=== PATIENT | male | born 1960 | race Caucasian/White ===

== ENCOUNTER 2020-11-06 23:27 | Observation (INO) | payer MEDICARE, SELFPAY ==
[2020-11-06 23:28] VITALS: BP 108/69; PULSE 76; RESP 15; TEMP 36.7; O2SAT 98; BMI 33.7
--- NOTE | 2020-11-06 23:57 | EKG12_ITS ---
Test Reason : CP Blood Pressure : / mmHG Vent. Rate : 076 BPM Atrial Rate : 304 BPM P-R Int : 000 ms QRS Dur : 090 ms QT Int : 396 ms P-R-T Axes : 252 042 016 degrees QTc Int : 445 ms Atrial flutter Abnormal ECG Confirmed by EMERSON HOLCOMB, RONALD ([id number]), industrial editor ZIA NAJERA ([id number]) on 11/08/2020 10:08:54 AM Referred By: PL Confirmed By:RONALD NORMAN MD
--- NOTE | 2020-11-06 23:59 | CT_ITS ---
STUDY: CT BRAIN WITHOUT CONTRAST REASON FOR EXAM: Male, 60 years old. trauma RADIATION DOSAGE (If Supplied By Facility): CTDIvol = ( 44.99 ) mGy, DLP = ( 829.85 ) mGycm TECHNIQUE: Transaxial CT imaging of the brain was performed without administration of intravenous contrast material. Individualized dose optimization techniques were used for this CT. COMPARISON: No relevant priors. FINDINGS: Normal soft tissue structures. Normal calvarium. There is mild cerebral atrophy with widening of the extra-axial spaces and ventricular dilatation. Normal white matter tracts of the cerebral hemispheres. Normal basal ganglia and thalami. Normal brainstem. Normal cerebellum. There is no intracranial hemorrhage. There are no findings of an acute ischemic infarction. Normal visualized paranasal sinuses. CT/Brain/Head without Contrast IMPRESSION: Mild involutional changes otherwise normal unenhanced CT scan of the brain. Electronically Signed: Marcela Pardo MD at 0:47 EDT , Service support ,
--- NOTE | 2020-11-06 23:59 | EX.ED.DYSGE1 ---
HPI History of Present Illness Chief Complaint: Dizziness Informant: patient Narrative Narrative: Patient pains of lightheadedness and dizziness for about a week and a half. He states this mostly when he first gets up out of a chair. He has to get up and then kind of hold himself still for a while before he gets walking. He is not having vertigo. No focal weakness. Today was worse. He actually passed out this evening. He felt himself getting weak. He put his hands on his chair. He did fall and hit his head on a table. It sounds like he had had a loss of consciousness but it was really the cause of the fall and not a response to the impact. He is on Eliquis for atrial fibrillation. He does feel occasional palpitations of his heart and feels like it is fluttering. He is not having chest pain or dyspnea. Getting up makes his lightheadedness worse. Laying down makes it better. Sounds like patient was diagnosed with A. fib about 6 or 8 months ago at [facility]. He had cardioversion that got him to a normal sinus rhythm. He was then transferred to [facility] where they did a heart cath and he was told everything was fine. They did add metoprolol to his medication regimen about a month ago. His symptoms started about 10 days ago. The amlodipine was started about 6 or 8 months ago. Lisinopril he has been on for years. Past medical history includes COPD, A. fib, high cholesterol, chronic back pain Medication list reviewed from patient. This includes Eliquis. No known allergies Surgeries include back and knee Lives with family in a trailer. [facility] Medical History Anxiety Atherosclerotic heart disease [place] coronary artery w/angina pectoris Atrial flutter with rapid ventricular response Bipolar disorder Chronic diastolic heart failure Congestive heart failure GERD (gastroesophageal reflux disease) Gout Hypertension Hyponatremia Lumbar post-laminectomy syndrome NSTEMI (non-ST elevated myocardial infarction) Pneumonia Shoulder girdle symptom Sleep apnea Umbilical hernia Home Medications albuterol sulfate [Ventolin Hfa (SP)] 1 - 2 puff INHALATION Q4H PRN PRN 05/29/16 [History Last Taken Unknown] lisinopril 10 mg PO BID 05/29/16 [History Last Taken Unknown] amlodipine 5 mg PO DAILY 11/06/20 [History Last Taken Unknown] apixaban [Eliquis] 5 mg PO DAILY 11/06/20 [History Last Taken Unknown] ascorbic acid (vitamin C) [Vitamin C] 500 mg PO DAILY 11/06/20 [History Last Taken Unknown] asenapine maleate [Saphris] 10 mg SUBLINGUAL DAILY 11/06/20 [History Last Taken Unknown] aspirin [Aspir-81] 81 mg PO DAILY 11/06/20 [History Last Taken Unknown] atorvastatin 40 mg PO DAILY 11/06/20 [History Last Taken Unknown] azelastine 2 spray INTRANASAL BID 11/06/20 [History Last Taken Unknown] cholecalciferol (vitamin D3) 25 mcg PO DAILY 11/06/20 [History Last Taken Unknown] diazepam [Valium] 5 mg PO BID 11/06/20 [History Last Taken Unknown] fluticasone propionate 50 spray INTRANASAL DAILY 11/06/20 [History Last Taken Unknown] mykmleognfa-yzvopsgoh-wcatsjzl [Trelegy Ellipta] 1 inh INHALATION DAILY 11/06/20 [History Last Taken Unknown] furosemide 40 mg PO DAILY 11/06/20 [History Last Taken Unknown] ipratropium-albuterol [DuoNeb] 3 ml INHALATION Q6H PRN PRN 11/06/20 [History Last Taken Unknown] loratadine 10 mg PO DAILY PRN 11/06/20 [History Last Taken Unknown] metoprolol succinate 25 mg PO DAILY 11/06/20 [History Last Taken Unknown] oxycodone 10 mg PO Q4H PRN PRN 11/06/20 [History Last Taken Unknown] pantoprazole 40 mg PO BID 11/06/20 [History Last Taken Unknown] polyethylene glycol 3350 17 g PO DAILY PRN PRN 11/06/20 [History Last Taken Unknown] tamsulosin 0.4 mg PO DAILY 11/06/20 [History Last Taken Unknown] tizanidine 2 mg PO DAILY PRN 11/06/20 [History Last Taken Unknown] vitamin B complex [B Complex] 1 cap PO DAILY 11/06/20 [History Last Taken Unknown] Allergy/AdvReac Type Severity Reaction Status Date / Time No Known Allergies Allergy Verified 11/06/20 23:30 Social History Smoking Status: Current every day smoker tobacco type: cigarettes ROS ROS ED Constitutional Constitutional ED: Denies chills, fever(s) or weight loss Eyes Eyes: Denies blurry vision or change in vision ENT ENT ED: Denies rhinorrhea Cardiovascular Cardiovascular: Reports palpitations; Denies chest pain Respiratory/Chest Respiratory/Chest: Denies cough or dyspnea Gastrointestinal Gastrointestinal: Denies abdominal pain, nausea or vomiting Genitourinary Genitourinary ED: Denies dysuria Musculoskeletal Musculoskeletal: Denies arthralgias, back pain, myalgias or neck pain Integumentary Denies rash Neurologic Neurologic: Reports headache(s); Denies paresthesias or weakness Psychiatric Psychiatric: Denies depression Endocrine Endocrinology: Denies polydipsia or polyuria Allergic/Immunologic Allergic/Immunologic ED: Denies urticaria EXAM Physical Exam Const Vital Signs: 11/06/20 23:28 11/06/20 23:52 11/07/20 01:17 Temperature 98.0 F Temperature Source Oral Pulse Rate 76 73 Respiratory Rate 15 16 Respiratory Effort Normal Respiratory Pattern Normal Blood Pressure 108/69 104/68 Blood Pressure Mean 82 80 Pulse Ox 98 95 Oxygen Delivery Method Room Air Room Air Positive well nourished and well developed General Appearance ED: well developed and NAD; Negative for pallor HEENT HEENT Narrative: Patient hit his head behind his right ear but I do not see any contusion or abrasion or zena at this time. Eyes PERRL and EOMs intact bilaterally Neck no lymphadenopathy, No supple and no JVD Resp normal respiratory effort and clear to auscultation bilaterally Effort and Inspection: Negative for pain with movement Cardio regular rate; Negative for regular rhythm Rate: other Other Details: Patient is is in atrial flutter generally with about 3-1 block but it does vary. GI normal to inspection, nondistended, normoactive bowel sounds and non-tender Palpation: soft Back/Spine no CVA tenderness Extremity normal to inspection General Extremety ED: Negative for edema or tenderness General Extremity: Negative for edema Neuro oriented x3 Sensorium / Orientation: alert Psych mental status grossly normal Skin no rashes or lesions noted and no wounds General Skin Exam: Negative for pallor MDM MDM MDM Narrative Medical decision making narrative: Patient's EKG shows atrial flutter. CBC shows no marked abnormalities. Letter lites show mild elevation in the creatinine. Calcium troponin magnesium are okay. Lactate was okay. He was given fluids. His blood pressure is hanging about 9800 systolic. Occasionally slightly higher. However, with his syncope, recurrent onset of dysrhythmia, low blood pressure I think going home would be unsafe for him. He will be brought in the hospital for further management. Lab Data Labs: Laboratory Results - last 24 hr 11/06/20 11/06/20 11/06/20 23:40 23:40 23:40 WBC 7.7 RBC 4.55 L Hgb 13.2 Hct 40.7 MCV 89.5 MCH 29.0 MCHC 32.4 RDW Std Deviation 57.0 H RDW Coeff of Jennifer 17.4 H Plt Count 261 MPV 9.8 Immature Gran % (Auto) 0.900 Neut % (Auto) 52.9 Lymph % (Auto) 30.7 [place] % (Auto) 11.3 H Eos % (Auto) 3.2 Baso % (Auto) 1.0 Absolute Neuts (auto) 4.1 Absolute Lymphs (auto) 2.37 Nucleated RBC % 0 Sodium 135 L Potassium 3.8 Chloride 100 Carbon Dioxide 30.0 Anion Gap 5 BUN 22 H Creatinine 1.53 H Estim Creat Clear Calc 54.95 Est GFR (MDRD) Af Amer 60 Est GFR (MDRD) Non-Af 49 L BUN/Creatinine Ratio 14.4 Glucose 88 Lactic Acid Calcium 9.8 Magnesium 2.4 Troponin I High Sens 7 11/07/20 00:07 WBC RBC Hgb Hct MCV MCH MCHC RDW Std Deviation RDW Coeff of Jennifer Plt Count MPV Immature Gran % (Auto) Neut % (Auto) Lymph % (Auto) [place] % (Auto) Eos % (Auto) Baso % (Auto) Absolute Neuts (auto) Absolute Lymphs (auto) Nucleated RBC % Sodium Potassium Chloride Carbon Dioxide Anion Gap BUN Creatinine Estim Creat Clear Calc Est GFR (MDRD) Af Amer Est GFR (MDRD) Non-Af BUN/Creatinine Ratio Glucose Lactic Acid 1.9 Calcium Magnesium Troponin I High Sens Radiography Diagnostic Testing: Radiology Impression Brain CT 11/06/20 23:59 IMPRESSION: Mild involutional changes otherwise normal unenhanced CT scan of the brain. Electronically Signed: Marcela Pardo MD at 0:47 EDT , Service support , EKG Initial EKG: Comments: EKG done for palpitations read by me shows atrial flutter with overall rate of 76. No ventricular ectopy. No notable ST elevation or depression. QRS duration and QTc are normal. Discharge Plan Dx/Rx/DC Orders Clinical Impression: Atrial flutter, Hypotension, Syncope Disposition Disposition: Acute Care Hospital [facility] Discharge Date/Time: 11/07/20 01:42
[2020-11-07] VITALS (18 sets, daily range): BP systolic 104–121; BP diastolic 65–85; PULSE 62–85; RESP 9–20; TEMP 36.5–36.7; O2SAT 95–100; BMI 33.3
[2020-11-07] MEDS: 0.9% Normal Saline 1,000 ML 1000 ML IV (00:07)
[2020-11-07 00:18] LABS: Absolute Lymphocyte Count 2.37 X10^3/uL (0.83-4.51); Absolute Neutrophil Count 4.1 X10^3/uL (2.0-7.7); Basophil# 0.08 X10^3/uL; Eosinophil# 0.25 X10^3/uL; Eosinophils% 3.2 % (0-5); Hematocrit 40.7 % (40-54); Hemoglobin 13.2 g/dL (13.0-16.5); Lymphocyte # 2.37 X10^3/ul (0.83-4.51); Lymphocyte % 30.7 % (19-41); Mean Corp Hgb Conc 32.4 g/dL (32-36); Mean Corpuscular Volume 89.5 fL (80-94); Mean Platelet Vol. 9.8 fl (6.2-12.0); Monocyte# 0.87 X10^3/uL; Monocyte% 11.3 % (0-10); NRBC Flagged by Analyzer 0 % (0-5); Neutrophil # 4.09 X10^3/uL (2.7-7.7); Neutrophil % 52.9 % (47-70); Platelet Count 261 K/mm3 (150-450); RBC Distribution Width CV 17.4 % (11.6-14.6); Red Blood Count 4.55 M/mm3 (4.6-6.2); White Blood Count 7.7 K/mm3 (4.4-11.0)
[2020-11-07 00:20] LABS: Anion Gap 5 (5-15); BUN 22 mg/dL (7-18); BUN/Creat Ratio 14.4 RATIO (10-20); Calcium,Total 9.8 mg/dL (8.5-10.1); Chloride 100 mmol/L (98-107); Creatinine, Serum 1.53 mg/dL (0.70-1.30); EST Glomerular Filtration Rate 49 mL/min (>60); Est Glom Filt Rate - Afr Amer 60 mL/min (>60); Estimated Creatinine Clearance 54.95 ml/min; Glucose 88 mg/dL (74-106); Potassium 3.8 mmol/L (3.5-5.1); Sodium Level 135 mmol/L (136-145); Troponin-I HS 7 pg/mL (3.0-78.0)
[2020-11-07 00:36] LABS: Lactic Acid 1.9 mmol/L (0.4-1.9)
--- NOTE | 2020-11-07 01:35 | PCM.HP.STD ---
Documented by User: LOREE CombsC 11/07/20 01:44 HPI - General General Date of Admission: 11/07/20 Date of Service: 11/07/20 Chief Complaint: Syncope HPI Narrative ABHILASH VIERA, is a 60 M who presents with complaints of syncopal episode today after being lightheaded and dizzy for the past week and a half when transitioning from sitting to standing. Patient states that he has had atrial fibrillation in the past and underwent cardioversion. Patient currently anticoagulated with Eliquis. Patient reports occasional fluttering however denies chest pain or shortness of breath. [facility] Medical History Anxiety Atherosclerotic heart disease [place] coronary artery w/angina pectoris Atrial flutter with rapid ventricular response Bipolar disorder Chronic diastolic heart failure Congestive heart failure GERD (gastroesophageal reflux disease) Gout Hypertension Hyponatremia Lumbar post-laminectomy syndrome NSTEMI (non-ST elevated myocardial infarction) Pneumonia Shoulder girdle symptom Sleep apnea Umbilical hernia Home Medications albuterol sulfate [Ventolin Hfa (SP)] 1 - 2 puff INHALATION Q4H PRN PRN 05/29/16 [History Last Taken Unknown] lisinopril 10 mg PO BID 05/29/16 [History Last Taken Unknown] amlodipine 5 mg PO DAILY 11/06/20 [History Last Taken Unknown] apixaban [Eliquis] 5 mg PO DAILY 11/06/20 [History Last Taken Unknown] ascorbic acid (vitamin C) [Vitamin C] 500 mg PO DAILY 11/06/20 [History Last Taken Unknown] asenapine maleate [Saphris] 10 mg SUBLINGUAL DAILY 11/06/20 [History Last Taken Unknown] aspirin [Aspir-81] 81 mg PO DAILY 11/06/20 [History Last Taken Unknown] atorvastatin 40 mg PO DAILY 11/06/20 [History Last Taken Unknown] azelastine 2 spray INTRANASAL BID 11/06/20 [History Last Taken Unknown] cholecalciferol (vitamin D3) 25 mcg PO DAILY 11/06/20 [History Last Taken Unknown] diazepam [Valium] 5 mg PO BID 11/06/20 [History Last Taken Unknown] fluticasone propionate 50 spray INTRANASAL DAILY 11/06/20 [History Last Taken Unknown] tzupqmzvsgj-stdkjhaya-ofjotegp [Trelegy Ellipta] 1 inh INHALATION DAILY 11/06/20 [History Last Taken Unknown] furosemide 40 mg PO DAILY 11/06/20 [History Last Taken Unknown] ipratropium-albuterol [DuoNeb] 3 ml INHALATION Q6H PRN PRN 11/06/20 [History Last Taken Unknown] loratadine 10 mg PO DAILY PRN 11/06/20 [History Last Taken Unknown] metoprolol succinate 25 mg PO DAILY 11/06/20 [History Last Taken Unknown] oxycodone 10 mg PO Q4H PRN PRN 11/06/20 [History Last Taken Unknown] pantoprazole 40 mg PO BID 11/06/20 [History Last Taken Unknown] polyethylene glycol 3350 17 g PO DAILY PRN PRN 11/06/20 [History Last Taken Unknown] tamsulosin 0.4 mg PO DAILY 11/06/20 [History Last Taken Unknown] tizanidine 2 mg PO DAILY PRN 11/06/20 [History Last Taken Unknown] vitamin B complex [B Complex] 1 cap PO DAILY 11/06/20 [History Last Taken Unknown] Allergy/AdvReac Type Severity Reaction Status Date / Time No Known Allergies Allergy Verified 11/06/20 23:30 Social History Smoking Status: Current every day smoker tobacco type: cigarettes ROS Constitutional Constitutional: Reports weakness; Denies anorexia, chills, fatigue, fever(s) or malaise Cardiovascular Cardiovascular: Reports palpitations and syncope; Denies chest pain or edema Respiratory/Chest Respiratory/Chest: Denies cough, shortness of breath at rest or shortness of breath with exertion Gastrointestinal Gastrointestinal: Denies abdominal pain, constipation, diarrhea, nausea or vomiting Genitourinary Genitourinary: Denies dysuria Musculoskeletal Musculoskeletal: Denies back pain, extremity pain, joint pain, joint stiffness or joint swelling Integumentary Integumentary: Denies dry skin Neurologic Neurologic: Denies abnormal gait, abnormal speech, confusion, dizziness or focal weakness Psychiatric Psychiatric: Denies anxiety or depression Endocrine Endocrinology: Denies change in body appearance Hematologic/Lymphatic Hematologic/Lymphatic: Denies easy bleeding or easy bruising Vital Signs Vital Signs Vital Signs: 11/06/20 23:28 11/06/20 23:52 11/07/20 01:17 Temperature 98.0 F Temperature Source Oral Pulse Rate 76 73 Respiratory Rate 15 16 Respiratory Effort Normal Respiratory Pattern Normal Blood Pressure 108/69 104/68 Blood Pressure Mean 82 80 Pulse Ox 98 95 Oxygen Delivery Method Room Air Room Air Weight Weight: 249 lb 1.957 oz Body Mass Index (BMI) 33.7 Physical Exam Const alert, oriented x3 and no apparent distress General Appearance: cooperative HEENT normocephalic and head/scalp atraumatic Eyes conjunctivae normal and no scleral icterus Neck supple and no JVD General: trachea midline Resp normal respiratory effort, normal air movement and clear to auscultation bilaterally Cardio regular rate, regular rhythm, S1 normal heart sound, S2 normal heart sound and peripheral pulses 2+ throughout GI normal to inspection, nondistended, normoactive bowel sounds, soft to palpation and non-tender Extremity normal capillary refill and no clubbing, cyanosis or edema General Extremity: no tenderness to palpation of joints or extremities Skin General Skin Exam: no breakdown and turgor normal Lesions: no lesions Rashes: no rashes Neuro no focal motor deficits and no sensory deficits noted Speech: speech normal Motor Exam: Negative for general weakness Psych thought process normal, cooperative and affect normal Appearance: appropriate Results Lab / Micro Data Result Diagrams: 11/06/20 23:40 11/06/20 23:40 Labs: Laboratory Results - last 24 hr 11/06/20 23:40: WBC 7.7, RBC 4.55 L, Hgb 13.2, Hct 40.7, MCV 89.5, MCH 29.0, MCHC 32.4, RDW Std Deviation 57.0 H, RDW Coeff of Jennifer 17.4 H, Plt Count 261, MPV 9.8, Immature Gran % (Auto) 0.900, Neut % (Auto) 52.9, Lymph % (Auto) 30.7, [place] % (Auto) 11.3 H, Eos % (Auto) 3.2, Baso % (Auto) 1.0, Absolute Neuts (auto) 4.1, Absolute Lymphs (auto) 2.37, Nucleated RBC % 0 11/06/20 23:40: Sodium 135 L, Potassium 3.8, Chloride 100, Carbon Dioxide 30.0, Anion Gap 5, BUN 22 H, Creatinine 1.53 H, Estim Creat Clear Calc 54.95, Est GFR (MDRD) Af Amer 60, Est GFR (MDRD) Non-Af 49 L, BUN/Creatinine Ratio 14.4, Glucose 88, Calcium 9.8, Troponin I High Sens 7 11/07/20 00:07: Lactic Acid 1.[address] 11/06/20 23:59 IMPRESSION: Mild involutional changes otherwise normal unenhanced CT scan of the brain. Electronically Signed: Marcela Pardo MD at 0:47 EDT , Service support , Assessment & Plan Assessment/Plan (1) Atrial flutter: QUALIFIERS: Atrial flutter type: typical Qualified Code(s): I48.3 - Typical atrial flutter PLAN: 1. Atrial flutter -Admit to PCU for cardiac monitoring -Continue home medications including Eliquis, metoprolol. -Trend cardiac enzymes -Cardiac diet -Encourage incentive spirometry -PT and OT to eval and treat -Oxygen per protocol -CBC, BMP, TSH ordered for a.m. Mag level stat -Echocardiogram for a.m. 2. Hypertension -We will hold all antihypertensives at this time -Vital signs per protocol -Obtain orthostatic vital signs x1 3. Bipolar disorder -Continue home medication regimen 4. COPD -Stable, currently on room air -Continue home medication regimen 5. BPH -Continue tamsulosin DVT prophylaxis-not indicated, patient chronically anticoagulated This patient was seen by ZAHIDA Combs under the supervision of Dr. Bentley. Documented by User: Dr. Kimberly Bentley MD 11/07/20 02:08 HPI - General General Date of Admission: 11/07/20 [facility] Medical History Anxiety Atherosclerotic heart disease [place] coronary artery w/angina pectoris Atrial flutter with rapid ventricular response Bipolar disorder Chronic diastolic heart failure Congestive heart failure GERD (gastroesophageal reflux disease) Gout Hypertension Hyponatremia Lumbar post-laminectomy syndrome NSTEMI (non-ST elevated myocardial infarction) Pneumonia Shoulder girdle symptom Sleep apnea Umbilical hernia Home Medications albuterol sulfate [Ventolin Hfa (SP)] 1 - 2 puff INHALATION Q4H PRN PRN 05/29/16 [History Last Taken Unknown] lisinopril 10 mg PO BID 05/29/16 [History Last Taken Unknown] amlodipine 5 mg PO DAILY 11/06/20 [History Last Taken Unknown] apixaban [Eliquis] 5 mg PO DAILY 11/06/20 [History Last Taken Unknown] ascorbic acid (vitamin C) [Vitamin C] 500 mg PO DAILY 11/06/20 [History Last Taken Unknown] asenapine maleate [Saphris] 10 mg SUBLINGUAL DAILY 11/06/20 [History Last Taken Unknown] aspirin [Aspir-81] 81 mg PO DAILY 11/06/20 [History Last Taken Unknown] atorvastatin 40 mg PO DAILY 11/06/20 [History Last Taken Unknown] azelastine 2 spray INTRANASAL BID 11/06/20 [History Last Taken Unknown] cholecalciferol (vitamin D3) 25 mcg PO DAILY 11/06/20 [History Last Taken Unknown] diazepam [Valium] 5 mg PO BID 11/06/20 [History Last Taken Unknown] fluticasone propionate 50 spray INTRANASAL DAILY 11/06/20 [History Last Taken Unknown] aswbfvzzbbm-hwjumdyml-ppiwzbpl [Trelegy Ellipta] 1 inh INHALATION DAILY 11/06/20 [History Last Taken Unknown] furosemide 40 mg PO DAILY 11/06/20 [History Last Taken Unknown] ipratropium-albuterol [DuoNeb] 3 ml INHALATION Q6H PRN PRN 11/06/20 [History Last Taken Unknown] loratadine 10 mg PO DAILY PRN 11/06/20 [History Last Taken Unknown] metoprolol succinate 25 mg PO DAILY 11/06/20 [History Last Taken Unknown] oxycodone 10 mg PO Q4H PRN PRN 11/06/20 [History Last Taken Unknown] pantoprazole 40 mg PO BID 11/06/20 [History Last Taken Unknown] polyethylene glycol 3350 17 g PO DAILY PRN PRN 11/06/20 [History Last Taken Unknown] tamsulosin 0.4 mg PO DAILY 11/06/20 [History Last Taken Unknown] tizanidine 2 mg PO DAILY PRN 11/06/20 [History Last Taken Unknown] vitamin B complex [B Complex] 1 cap PO DAILY 11/06/20 [History Last Taken Unknown] Allergy/AdvReac Type Severity Reaction Status Date / Time No Known Allergies Allergy Verified 11/06/20 23:30 Social History Smoking Status: Current every day smoker tobacco type: cigarettes Results Lab / Micro Data Result Diagrams: 11/06/20 23:40 11/06/20 23:40
[2020-11-07 01:46] LABS: Magnesium 2.4 mg/dL (1.6-2.6)
[2020-11-07] MEDS: 0.9% Normal Saline 1,000 ML 100 ML IV ×3 (02:11→23:48)
[2020-11-07] MEDS: 0.9% Saline Lock 10 ML Syringe IV ×2 (02:11→15:27)
[2020-11-07] MEDS: oxyCODONE 5 MG Tablet 10 MG PO ×5 (02:23→20:38)
--- NOTE | 2020-11-07 02:32 | PCS.PANDOC ---
PANDEMIC DOCUMENTATION INITIATED: Date: 10/29/2020 Time: 190
[2020-11-07 03:07] LABS: Troponin-I HS 8 pg/mL (3.0-78.0)
[2020-11-07] MEDS: Acetaminophen 325 MG Tablet 650 MG PO ×2 (05:18→16:33)
[2020-11-07 05:25] LABS: Absolute Lymphocyte Count 2.05 X10^3/uL (0.83-4.51); Basophil# 0.07 X10^3/uL; Basophil% 1.2 % (0-1); Eosinophil# 0.22 X10^3/uL; Eosinophils% 3.6 % (0-5); Hematocrit 39.6 % (40-54); Hemoglobin 12.4 g/dL (13.0-16.5); Lymphocyte # 2.05 X10^3/ul (0.83-4.51); Lymphocyte % 33.9 % (19-41); Mean Corp Hgb Conc 31.3 g/dL (32-36); Mean Corpuscular Hgb 28.4 pg (27.0-32.0); Mean Corpuscular Volume 90.8 fL (80-94); Mean Platelet Vol. 9.6 fl (6.2-12.0); Monocyte# 0.66 X10^3/uL; Monocyte% 10.9 % (0-10); NRBC Flagged by Analyzer 0 % (0-5); Neutrophil # 3.03 X10^3/uL (2.7-7.7); Neutrophil % 50.2 % (47-70); Platelet Count 219 K/mm3 (150-450); RBC Distribution Width CV 17.2 % (11.6-14.6); RBC Distribution Width SD 57.2 fl (35.1-43.9); Red Blood Count 4.36 M/mm3 (4.6-6.2)
[2020-11-07 05:53] LABS: Troponin-I HS 7 pg/mL (3.0-78.0)
--- NOTE | 2020-11-07 05:55 | ECHOD_ITS ---
Reason For Study: AFIB/FLUTTER Procedure This was a 2D Doppler, Color Flow transthoracic echocardiogram. Exam performed portable in patient room. Left Ventricle Normal LV size. Left ventricular systolic function is normal. The estimated ejection fraction is 55 %. Diastolic function is indeterminate. No regional wall motion abnormalities noted. Right Ventricle Normal RV size. Normal systolic function. Atria Normal left atrium. Normal right atrium. Mitral Valve Normal mitral valve. Tricuspid Valve Normal tricuspid valve. Mild tricuspid valve insufficiency. Aortic Valve Trisinus/trileaflet aortic valve. Pulmonic Valve Normal pulmonic valve. Great Vessels Normal aortic root. The pulmonary artery is normal size. Normal inferior vena cava. Pericardium/Pleural No pericardial effusion. MMode/2D Measurements & Calculations LVIDd: 5.3 cm IVSd: 1.0 cm Ao root diam: 3.5 cm LVIDs: 3.7 cm LVPWd: 1.0 cm RVDd: 3.6 cm FS: 30.6 % LAV(MOD-bp): 53.6 ml LA A4 area: 19.8 cm2 LA dimension(2D): 3.0 cm LAV(MOD-bp) Indexed: 22.9 ml/m2 LAV(MOD-sp2): 45.0 ml LAV(MOD-sp4): 52.9 ml RA A4 area: 16.1 cm2 Time Measurements MV dec time: 0.19 sec Doppler Measurements & Calculations MV E max juliocesar: 78.2 cm/sec Ao V2 max: 102.8 cm/sec LV V1 max: 88.3 cm/sec MV A max juliocesar: 59.7 cm/sec Ao max P.2 mmHg LV V1 max P.1 mmHg MV E/A: 1.3 TR max juliocesar: 228.8 cm/sec TR max P.8 mmHg ECHO/Echo Complete Interpretation Summary Normal LV size. Left ventricular systolic function is normal. The estimated ejection fraction is 55 %. Diastolic function is indeterminate. Ordering Physician: Leila Benavides Referring Physician: Melyssa Nevarez Performed By: Do Buckley, DANIEL, RVT
[2020-11-07 06:03] LABS: Anion Gap 6 (5-15); BUN 21 mg/dL (7-18); BUN/Creat Ratio 16.8 RATIO (10-20); Calcium,Total 9.3 mg/dL (8.5-10.1); Chloride 100 mmol/L (98-107); Creatinine, Serum 1.25 mg/dL (0.70-1.30); EST Glomerular Filtration Rate 62 mL/min (>60); Est Glom Filt Rate - Afr Amer 75 mL/min (>60); Estimated Creatinine Clearance 67.25 ml/min; Glucose 101 mg/dL (74-106); Potassium 3.8 mmol/L (3.5-5.1); Sodium Level 135 mmol/L (136-145); Thyroid Stim Hormone (TSH) 1.26 uIU/mL (0.358-3.74)
[2020-11-07] MEDS: Budesonide Respules 0.5 MG/2 ML AMPUL.NEB. INHALATION ×2 (06:49→18:55)
[2020-11-07 08:31] LABS: Troponin-I HS 8 pg/mL (3.0-78.0)
[2020-11-07] MEDS: Vitamin B Comp W-C Capsule 1 CAP PO (08:35)
[2020-11-07] MEDS: APIXABAN 5 MG TABLET PO ×2 (08:35→20:41)
[2020-11-07] MEDS: Aspirin E.C. 81 MG Tablet PO (08:35)
[2020-11-07] MEDS: Cholecalciferol (VIT D3) 25 MCG TABLET (1,000 UNITS) PO (08:35)
[2020-11-07] MEDS: Ascorbic Acid 500 MG Tablet PO (08:35)
[2020-11-07] MEDS: Pantoprazole Sodium 40 MG Tablet PO ×2 (08:35→20:41)
[2020-11-07] MEDS: Metoprolol(XL)Succ 25 MG Tablet PO (08:36)
[2020-11-07] MEDS: Tamsulosin HCl 0.4 MG Capsule PO (08:36)
[2020-11-07] MEDS: Fluticasone 0.05% 1 SPRAY NASAL.SRY 50 SPRAY NASAL (08:36)
[2020-11-07] MEDS: diazePAM 5 MG Tablet PO ×2 (08:40→20:43)
[2020-11-07] MEDS: Cephalexin 500 MG Capsule PO ×2 (10:29→20:41)
--- NOTE | 2020-11-07 11:44 | MRI_ITS ---
STUDY: MRI BRAIN WITHOUT CONTRAST REASON FOR EXAM: Male, 60 years old. ataxia, syncope episode TECHNIQUE: Standardized multiplanar fat and water weighted pulse sequences were obtained. COMPARISON: CT earlier today FINDINGS: Normal size of the ventricles and extra-axial spaces for the patient''s age. Normal white matter tracts of the supratentorial brain. There is no evidence for recent intracranial ischemia or other cause of cytotoxic edema on diffusion weighted imaging (DWI). Normal T2* images of the brain without demonstrated susceptibility artifact. There is no demonstrated hemosiderin stain. Normal bilateral basal ganglia. Normal thalami. There is no extra-axial fluid accumulation. Normal flow voids within the major intracranial circulation suggesting patency by spin echo criteria. Normal sella turcica, pituitary gland, infundibular stalk, optic chiasm and hypothalamus. Normal tectal plate and pineal gland. Normal midbrain, edgar and medulla. Normal cerebellum. Normal basal cisterns. Normal bilateral temporal bones. Normal bilateral internal auditory canals. No demonstrated orbital abnormality, within the constraints of a routine brain study. Normal visualized paranasal sinuses. Normal calvarium and skull base. Normal visualized soft tissue structures. Normal visualized upper cervical spine. MRI/Brain without Contrast IMPRESSION: Normal unenhanced MRI of the brain. Electronically Signed: Hi Beck MD at 15:30 EDT Tel , Service support ,
[2020-11-07] MEDS: Polyethylene Glycol 3350 17 GM PACKET PO (11:55)
[2020-11-07] MEDS: diazePAM 2 MG Tablet PO (14:24)
--- NOTE | 2020-11-07 16:23 | PCM.HOSP.N ---
Hospitalist Note Patient is a 60-year-old male who was admitted to the hospital on 11/07/2020 for atrial flutter. Cardiology consult was ordered and is currently pending. TSH and mag level ordered on admission are within normal limits. High-sensitivity troponins not elevated. Echocardiogram demonstrated normal LV size, normal LV systolic function and estimated EF of 55% with an indeterminate diastolic dysfunction. Patient seen by Bobby Mccartney PA-C, under the supervision of Dr. Ramírez.
--- NOTE | 2020-11-07 19:31 | CON.PCM.CA_ITS ---
Assessment & Plan Assessment/Plan (1) Atrial flutter: QUALIFIERS: Atrial flutter type: typical Qualified Code(s): I48.3 - Typical atrial flutter PLAN: The patient appears to be in atrial flutter. Based upon his recollection approximately 1 month ago he was in normal rhythm. Thus it appears that he has reverted to atrial flutter. It is unclear at this time whether the recurrence of atrial flutter is the sole etiology for his symptoms and events. He has remained on rate control therapy and anticoagulant therapy. It may not be unreasonable to consider a repeat synchronized biphasic DC cardioversion and attempt to regain sinus rhythm as that may benefit the patient's underlying symptoms and clinical course. (2) Syncope: QUALIFIERS: Syncope type: unspecified Qualified Code(s): R55 - Syncope and collapse PLAN: The patient had a syncopal event. There is concerned that this may have been orthostatic mediated. There is a question as to whether or not his underlying atrial dysrhythmia was a contributing factor. At the present time the patient continues to receive IV fluids. His cardiac rate and rhythm are being followed. Again it may not be unreasonable to consider a repeat synchronized biphasic DC cardioversion and attempt to regain sinus rhythm to see whether this would benef it the patient's symptoms and clinical course. (3) Hypotension: QUALIFIERS: Hypotension type: unspecified hypotension type Qualified Code(s): I95.9 - Hypotension, unspecified PLAN: The patient notes that his antihypertensive medications were recently adjusted. He does believe his blood pressures have been lower than usual. This may be a contributing factor to his recent symptoms and events. Thus his medications will need to be readjusted as deemed accordingly. Addt'l Comments Overall, at the present time, the patient will continue to be monitored. An attempt is being made to retrieve his [facility] medical records for continuity of care. His medicines will be adjusted as needed. He will be considered for a repeat synchronized biphasic DC cardioversion and attempt to regain sinus rhythm to help with his symptoms and clinical course. Eventually he will need to follow-up with his [facility] psych tech for continued outpatient evaluation and care. The patient's case has been discussed and reviewed with the patient. He was agreeable to this approach. HPI Consult Data Date of Consult: 11/07/20 HPI Narrative HPI Narrative: ABHILASH VIERA, is a 60 year old white male who presents for cardiovascular, notation for concerns of recurrent atrial flutter, dizziness/lightheadedness, near syncope/syncope. The patient follows with [facility] cardiology out of [facility], and [place], [place] and has also been evaluated at [facility]. The patient states that he was diagnosed earlier this year with underlying atrial fibrillation/flutter. He states that he underwent a noninvasive and invasive cardiovascular evaluation. To the best of his knowledge he had no abnormal findings with respect to underlying CAD or LV systolic dysfunction. He underwent a DC cardioversion to regain sinus rhythm. He states the best of his knowledge, up to approximately 1 month ago when he was being evaluated by his primary psych tech with an ECG, that he was remaining in sinus rhythm. He notes his psych tech was adjusting his medications. Since that time he feels that he has been more lightheaded and dizzy. He notes yesterday that he got up from a sitting to standing position became lightheaded and dizzy and subsequently lost consciousness. He states he remembers falling forward and hearing the noise of hitting the table . He does not recall any concerning chest discomfort or difficulty breathing. He has not had any orthopnea or PND or ongoing peripheral pitting edema. He was brought to [facility] for further evaluation. His cardiac enzymes have been negative. His ECG demonstrated atrial flutter with a controlled ventricular response. His chest x-ray is as noted below. There were concerns that he may have had orthostatic changes and thus he has been receiving IV fluids. His other medications such as DARION inhibitors and calcium channel antagonist such as amlodipine or placed on hold. He has continued his beta- bo therapy and his anticoagulant therapy. He states he has not interrupted his anticoagulant therapy since he was placed on it earlier this year. Since receiving IV fluids he states he is feeling somewhat better but he still does not feel back to his normal self and/or normal strength. 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 Atrial flutter with rapid ventricular response Bipolar disorder Chronic diastolic heart failure Congestive heart failure GERD (gastroesophageal reflux disease) Gout Hypertension Hyponatremia Lumbar post-laminectomy syndrome NSTEMI (non-ST elevated myocardial infarction) Pneumonia Shoulder girdle symptom Sleep apnea Umbilical hernia Home Medications albuterol sulfate [Ventolin Hfa (SP)] 1 - 2 puff INHALATION Q4H PRN PRN 05/29/16 [History Last Taken Unknown] lisinopril 10 mg PO BID 05/29/16 [History Last Taken Unknown] amlodipine 5 mg PO DAILY 11/06/20 [History Last Taken Unknown] apixaban [Eliquis] 5 mg PO BID 11/06/20 [History Last Taken Unknown] ascorbic acid (vitamin C) [Vitamin C] 500 mg PO DAILY 11/06/20 [History Last Taken Unknown] asenapine maleate [Saphris] 10 mg SUBLINGUAL DAILY 11/06/20 [History Last Taken Unknown] aspirin [Aspir-81] 81 mg PO DAILY 11/06/20 [History Last Taken Unknown] azelastine 2 spray INTRANASAL BID 11/06/20 [History Last Taken Unknown] cholecalciferol (vitamin D3) 25 mcg PO DAILY 11/06/20 [History Last Taken Un known] diazepam [Valium] 5 mg PO BID 11/06/20 [History Last Taken Unknown] fluticasone propionate 50 spray INTRANASAL DAILY 11/06/20 [History Last Taken Unknown] nplwcrdpwsx-ylptwrfev-beqndynv [Trelegy Ellipta] 1 inh INHALATION DAILY 11/06/20 [History Last Taken Unknown] furosemide 40 mg PO QODAY 11/06/20 [History Last Taken Unknown] ipratropium-albuterol [DuoNeb] 3 ml INHALATION Q6H PRN PRN 11/06/20 [History Last Taken Unknown] loratadine 10 mg PO DAILY PRN 11/06/20 [History Last Taken Unknown] metoprolol succinate 25 mg PO DAILY 11/06/20 [History Last Taken Unknown] oxycodone 10 mg PO Q4H PRN PRN 11/06/20 [History Last Taken Unknown] pantoprazole 40 mg PO BID 11/06/20 [History Last Taken Unknown] polyethylene glycol 3350 17 g PO DAILY 11/06/20 [History Last Taken Unknown] tamsulosin 0.4 mg PO DAILY 11/06/20 [History Last Taken Unknown] tizanidine 2 mg PO DAILY PRN 11/06/20 [History Last Taken Unknown] vitamin B complex [B Complex] 1 cap PO DAILY 11/06/20 [History Last Taken Unknown] cephalexin 500 mg PO TID 11/07/20 [History Last Taken Unknown] yyemmldn-mpo-HZ-lycopen-lutein [Centrum Silver Men] 1 tab PO DAILY 11/07/20 [History Last Taken Unknown] omega-3 fatty acids-vitamin E [Fish Oil] 1 cap PO DAILY 11/07/20 [History Last Taken Unknown] Allergy/AdvReac Type Severity Reaction Status Date / Time No Known Allergies Allergy Verified 11/06/20 23:30 Social History Smoking Status: Current every day smoker tobacco type: cigarettes ROS Constitutional Constitutional: Reports weakness Eyes Eyes: Reports as per HPI ENT HEENT: Reports as per HPI Cardiovascular Cardiovascular: Reports dizziness, lightheadedness and syncope Respiratory/Chest Respiratory/Chest: Reports as per HPI Gastrointestinal Gastrointestinal: Reports as per HPI Genitourinary Genitourinary: Reports as per HPI Musculoskeletal Musculoskeletal: Reports as per HPI Neurologic Neurologic: Reports dizziness and syncope Physical Exam Const alert, oriented x3, no apparent distress and healthy appearing Orientation / Consciousness: awake HEENT normocephalic, head/scalp atraumatic and hearing grossly normal bilaterally Eyes PERRL, EOMs intact bilaterally and conjunctivae normal Neck full ROM, supple and no JVD Resp clear to auscultation bilaterally Cardio Rhythm: abnormal rhythm irregularly irregular Heart Sounds: S1 normal and S2 normal GI normal to inspection, nondistended, normoactive bowel sounds Extremity no pedal edema Neuro oriented x3, moves all extremities, no focal motor deficits and no sensory deficits noted Psych mental status grossly normal Procedure Criteria Type of Procedure Procedure Type: Elective Elective Risks - COVID COVID Risk Discussion: The surgeon/proceduralist and patient have discussed in detail the risk of exposure to and/or potential harm posed by the COVID-19 virus with having a surgery/procedure at this time versus the risk of delaying the surgery/procedure. It is not possible to know either the risk of delaying the surgery or procedure or chance of getting an infection with perfect accuracy, but a joint decision was made between the patient and the surgeon/proceduralist to proceed at this time with the scheduled surgery/procedure as indicated on the consent form. Objective Data Vital Signs: Vital Signs Temp Pulse Resp BP Pulse Ox 97.9 F 75 17 121/83 H 97 11/07/20 15:35 11/07/20 18:56 11/07/20 18:56 11/07/20 15:35 11/07/20 15:35 Oxygen Delivery Method Room Air Weight: 246 lb 0.574 oz Body Mass Index (BMI) 33.3 Intake & Output: Intake and Output for Last 24 Hours 11/05/20 11/06/20 11/07/20 23:59 23:59 23:59 Intake Total 2981.66 / 2981.66 Balance 2981.66 / 2981.66 Lab / Micro Data Result Diagrams: 11/07/20 04:38 11/07/20 04:38 Labs: Laboratory Results - last 24 hr 11/06/20 23:40: WBC 7.7, RBC 4.55 L, Hgb 13.2, Hct 40.7, MCV 89.5, MCH 29.0, MCHC 32.4, RDW Std Deviation 57.0 H, RDW Coeff of Jennifer 17.4 H, Plt Count 261, MPV 9.8, Immature Gran % (Auto) 0.900, Neut % (Auto) 52.9, Lymph % (Auto) 30.7, Hodgeman % (Auto) 11.3 H, Eos % (Auto) 3.2, Baso % (Auto) 1.0, Absolute Neuts (auto) 4.1, Absolute Lymphs (auto) 2.37, Nucleated RBC % 0 11/06/20 23:40: Sodium 135 L, Potassium 3.8, Chloride 100, Carbon Dioxide 30.0, Anion Gap 5, BUN 22 H, Creatinine 1.53 H, Estim Creat Clear Calc 54.95, Est GFR (MDRD) Af Amer 60, Est GFR (MDRD) Non-Af 49 L, BUN/Creatinine Ratio 14.4, Glucose 88, Calcium 9.8, Troponin I High Sens 7 11/06/20 23:40: Magnesium 2.4 11/07/20 00:07: Lactic Acid 1.9 11/07/20 02:40: Troponin I High Sens 8 11/07/20 04:38: WBC 6.0, RBC 4.36 L, Hgb 12.4 L, Hct 39.6 L, MCV 90.8, MCH 28.4, MCHC 31.3 L, RDW Std Deviation 57.2 H, RDW Coeff of Jennifer 17.2 H, Plt Count 219, MPV 9.6, Immature Gran % (Auto) 0.200, Neut % (Auto) 50.2, Lymph % (Auto) 33.9, Hodgeman % (Auto) 10.9 H, Eos % (Auto) 3.6, Baso % (Auto) 1.2 H, Absolute Neuts (auto) 3.0, Absolute Lymphs (auto) 2.05, Nucleated RBC % 0 11/07/20 04:38: Sodium 135 L, Potassium 3.8, Chloride 100, Carbon Dioxide 29.0, Anion Gap 6, BUN 21 H, Creatinine 1.25, Estim Creat Clear Calc 67.25, Est GFR (MDRD) Af Amer 75, Est GFR (MDRD) Non-Af 62, BUN/Creatinine Ratio 16.8, Glucose 101, Calcium 9.3, TSH 1.26 11/07/20 04:38: Troponin I High Sens 7 11/07/20 08:08: Troponin I High Sens 8 Cardiology Labs/Tests 11/06/20 23:40: WBC 7.7, RBC 4.55 L, Hgb 13.2, Hct 40.7, MCV 89.5, MCH 29.0, MCHC 32.4, Plt Count 261, MPV 9.8, Immature Gran % (Auto) 0.900, Neut % (Auto) 52.9, Lymph % (Auto) 30.7, Hodgeman % (Auto) 11.3 H, Eos % (Auto) 3.2, Baso % (Auto) 1.0, Absolute Neuts (auto) 4.1, Nucleated RBC % 0 11/06/20 23:40: Sodium 135 L, Potassium 3.8, Chloride 100, Carbon Dioxide 30.0, Anion Gap 5, BUN 22 H, Creatinine 1.53 H, Est GFR (MDRD) Af Amer 60, Est GFR (MDRD) Non-Af 49 L, BUN/Creatinine Ratio 14.4, Glucose 88, Calcium 9.8 11/06/20 23:40: Magnesium 2.4 11/07/20 00:07: Lactic Acid 1.9 11/07/20 04:38: WBC 6.0, RBC 4.36 L, Hgb 12.4 L, Hct 39.6 L, MCV 90.8, MCH 28.4, MCHC 31.3 L, Plt Count 219, MPV 9.6, Immature Gran % (Auto) 0.200, Neut % (Auto) 50.2, Lymph % (Auto) 33.9, Hodgeman % (Auto) 10.9 H, Eos % (Auto) 3.6, Baso % (Auto) 1.2 H, Absolute Neuts (auto) 3.0, Nucleated RBC % 0 11/07/20 04:38: Sodium 135 L, Potassium 3.8, Chloride 100, Carbon Dioxide 29.0, Anion Gap 6, BUN 21 H, Creatinine 1.25, Est GFR (MDRD) Af Amer 75, Est GFR (MDRD) Non-Af 62, BUN/Creatinine Ratio 16.8, Glucose 101, Calcium 9.3 Rhythm: Atrial flutter EKG: Atrial flutter ECHO: As noted below Radiography Diagnostic Testing: Radiology Impression Brain CT 11/06/20 23:59 IMPRESSION: Mild involutional changes otherwise normal unenhanced CT scan of the brain. Electronically Signed: Marcela Pardo MD at 0:47 EDT , Service support , Echocardiogram 11/07/20 05:55 Interpretation Summary Normal LV size. Left ventricular systolic function is normal. The estimated ejection fraction is 55 %. Diastolic function is indeterminate. Ordering Physician: Leila Benavides Referring Physician: Melyssa Nevarez Performed By: Do Buckley, RDCS, RVT Brain MRI 11/07/20 11:44 IMPRESSION: Normal unenhanced MRI of the brain. Electronically Signed: Hi Beck MD at 15:30 EDT Tel , Service support ,
[2020-11-07] MEDS: MELATONIN 3 MG TABLET PO (20:39)
[2020-11-07] MEDS: Azelastine HCl NASAL.SRY 2 SPRAY NASAL (20:39)
[2020-11-08] VITALS (16 sets, daily range): BP systolic 98–137; BP diastolic 66–93; PULSE 62–91; RESP 16–18; TEMP 36.3–36.5; O2SAT 95–100
[2020-11-08] MEDS: oxyCODONE 5 MG Tablet 10 MG PO ×3 (02:32→15:55)
[2020-11-08] MEDS: Acetaminophen 325 MG Tablet 650 MG PO (02:33)
--- NOTE | 2020-11-08 05:55 | EKG12_ITS ---
Test Reason : Blood Pressure : / mmHG Vent. Rate : 073 BPM Atrial Rate : 292 BPM P-R Int : 000 ms QRS Dur : 098 ms QT Int : 390 ms P-R-T Axes : 254 053 032 degrees QTc Int : 429 ms Atrial flutter Nonspecific ST and T wave abnormality Abnormal ECG When compared with ECG of 06-NOV-2020 23:32, MANUAL COMPARISON REQUIRED, DATA IS UNCONFIRMED Confirmed by KRISTA HOLCOMB, LARRY ([id number]), offline editor ZIA NAJERA ([id number]) on 11/09/2020 9:52:53 AM Referred By: ANTONELLA Confirmed By:JAMI VELASCO MD
[2020-11-08] MEDS: Cephalexin 500 MG Capsule PO ×2 (06:49→14:00)
[2020-11-08] MEDS: Budesonide Respules 0.5 MG/2 ML AMPUL.NEB. INHALATION (06:58)
[2020-11-08 07:14] LABS: Absolute Lymphocyte Count 1.68 X10^3/uL (0.83-4.51); Basophil# 0.07 X10^3/uL; Basophil% 1.1 % (0-1); Eosinophil# 0.18 X10^3/uL; Eosinophils% 2.7 % (0-5); Hematocrit 38.6 % (40-54); Hemoglobin 12.4 g/dL (13.0-16.5); Lymphocyte # 1.68 X10^3/ul (0.83-4.51); Lymphocyte % 25.5 % (19-41); Mean Corp Hgb Conc 32.1 g/dL (32-36); Mean Corpuscular Hgb 28.9 pg (27.0-32.0); Mean Platelet Vol. 9.9 fl (6.2-12.0); Monocyte# 0.65 X10^3/uL; Monocyte% 9.9 % (0-10); NRBC Flagged by Analyzer 0 % (0-5); Neutrophil # 3.98 X10^3/uL (2.7-7.7); Neutrophil % 60.5 % (47-70); Platelet Count 179 K/mm3 (150-450); RBC Distribution Width CV 17.1 % (11.6-14.6); RBC Distribution Width SD 56.2 fl (35.1-43.9); Red Blood Count 4.29 M/mm3 (4.6-6.2); White Blood Count 6.6 K/mm3 (4.4-11.0)
[2020-11-08 07:45] LABS: Anion Gap 4 (5-15); BUN 15 mg/dL (7-18); BUN/Creat Ratio 16.4 RATIO (10-20); Calcium,Total 9.3 mg/dL (8.5-10.1); Chloride 107 mmol/L (98-107); Creatinine, Serum 0.91 mg/dL (0.70-1.30); EST Glomerular Filtration Rate 89 mL/min (>60); Est Glom Filt Rate - Afr Amer 108 mL/min (>60); Estimated Creatinine Clearance 92.38 ml/min; Glucose 101 mg/dL (74-106); Potassium 4.2 mmol/L (3.5-5.1); Sodium Level 139 mmol/L (136-145)
[2020-11-08] MEDS: 0.9% Normal Saline 1,000 ML 100 ML IV (09:22)
--- NOTE | 2020-11-08 09:51 | PCM.PN.CARD ---
Subjective Subjective The patient is awake and alert. He states he still does not feel as if he is returned to his baseline status. Objective Data Vital Signs: Vital Signs Temp Pulse Resp BP Pulse Ox 97.3 F L 75 18 136/93 H 95 11/08/20 02:28 11/08/20 07:30 11/08/20 06:58 11/08/20 02:28 11/08/20 06:58 Oxygen Delivery Method Room Air Weight: 246 lb 0.574 oz Body Mass Index (BMI) 33.3 Intake & Output: Intake and Output for Last 24 Hours 11/06/20 11/07/20 11/08/20 23:59 23:59 23:59 Intake Total 3981.66 / 4381.66 1456.67 / 1456.67 Balance 3981.66 / 4381.66 1456.67 / 1456.67 Lab / Micro Data Result Diagrams: 11/08/20 06:20 11/08/20 06:20 Labs: Laboratory Results - last 24 hr 11/08/20 06:20: WBC 6.6, RBC 4.29 L, Hgb 12.4 L, Hct 38.6 L, MCV 90.0, MCH 28.9, MCHC 32.1, RDW Std Deviation 56.2 H, RDW Coeff of Jennifer 17.1 H, Plt Count 179, MPV 9.9, Immature Gran % (Auto) 0.300, Neut % (Auto) 60.5, Lymph % (Auto) 25.5, Hemphill % (Auto) 9.9, Eos % (Auto) 2.7, Baso % (Auto) 1.1 H, Absolute Neuts (auto) 4.0, Absolute Lymphs (auto) 1.68, Nucleated RBC % 0 11/08/20 06:20: Sodium 139, Potassium 4.2, Chloride 107, Carbon Dioxide 28.0, Anion Gap 4 L, BUN 15, Creatinine 0.91, Estim Creat Clear Calc 92.38, Est GFR (MDRD) Af Amer 108, Est GFR (MDRD) Non-Af 89, BUN/Creatinine Ratio 16.4, Glucose 101, Calcium 9.3 Cardiology Labs/Tests 11/08/20 06:20: WBC 6.6, RBC 4.29 L, Hgb 12.4 L, Hct 38.6 L, MCV 90.0, MCH 28.9, MCHC 32.1, Plt Count 179, MPV 9.9, Immature Gran % (Auto) 0.300, Neut % (Auto) 60.5, Lymph % (Auto) 25.5, Hemphill % (Auto) 9.9, Eos % (Auto) 2.7, Baso % (Auto) 1.1 H, Absolute Neuts (auto) 4.0, Nucleated RBC % 0 11/08/20 06:20: Sodium 139, Potassium 4.2, Chloride 107, Carbon Dioxide 28.0, Anion Gap 4 L, BUN 15, Creatinine 0.91, Est GFR (MDRD) Af Amer 108, Est GFR (MDRD) Non-Af 89, BUN/Creatinine Ratio 16.4, Glucose 101, Calcium 9.3 Rhythm: Atrial flutter Chest CT Scan: Radiography Diagnostic Testing: Radiology Impression Echocardiogram 11/07/20 05:55 Interpretation Summary Normal LV size. Left ventricular systolic function is normal. The estimated ejection fraction is 55 %. Diastolic function is indeterminate. Ordering Physician: Leila Benavides Referring Physician: Melyssa Nevarez Performed By: Do Buckley, EMMETTCS, RVT Brain MRI 11/07/20 11:44 IMPRESSION: Normal unenhanced MRI of the brain. Electronically Signed: Hi Beck MD at 15:30 EDT Tel , Service support , Physical Exam Const alert, oriented x3, no apparent distress and healthy appearing Orientation / Consciousness: awake HEENT normocephalic, head/scalp atraumatic and hearing grossly normal bilaterally Eyes PERRL, EOMs intact bilaterally and conjunctivae normal Neck full ROM, supple and no JVD Resp clear to auscultation bilaterally Cardio Rhythm: abnormal rhythm irregularly irregular Heart Sounds: S1 normal and S2 normal GI normal to inspection, nondistended, normoactive bowel sounds Extremity no pedal edema Neuro oriented x3, moves all extremities, no focal motor deficits and no sensory deficits noted Psych mental status grossly normal Assessment & Plan Assessment/Plan (1) Atrial flutter: QUALIFIERS: Atrial flutter type: typical Qualified Code(s): I48.3 - Typical atrial flutter PLAN: The patient appears to be in atrial flutter. Based upon his recollection approximately 1 month ago he was in normal rhythm. Thus it appears that he has reverted to atrial flutter. It is unclear at this time whether the recurrence of atrial flutter is the sole etiology for his symptoms and events. He has remained on rate control therapy and anticoagulant therapy. As he been remaining in atrial flutter with no obvious return to sinus rhythm he will be considered for synchronized biphasic DC cardioversion. The procedure and risk were discussed with the patient. He was agreeable to this approach. (2) Syncope: QUALIFIERS: Syncope type: unspecified Qualified Code(s): R55 - Syncope and collapse PLAN: The patient had a syncopal event. There is concerned that this may have been orthostatic mediated. There is a question as to whether or not his underlying atrial dysrhythmia was a contributing factor. At the present time the patient continues to receive IV fluids. His cardiac rate and rhythm are being followed. (3) Hypotension: QUALIFIERS: Hypotension type: unspecified hypotension type Qualified Code(s): I95.9 - Hypotension, unspecified PLAN: The patient notes that his antihypertensive medications were recently adjusted. He does believe his blood pressures have been lower than usual. This may be a contributing factor to his recent symptoms and events. Thus his medications will need to be readjusted as deemed accordingly. Addt'l Comments The patient's case has been discussed and reviewed with the patient and Dr. Washington and Dr. Gregory of pulmonology/critical care medicine who agreed to participate in his care with respect to the upcoming synchronized biphasic DC cardioversion procedure. Procedure Criteria Type of Procedure Procedure Type: Elective Elective Risks - COVID COVID Risk Discussion: The surgeon/proceduralist and patient have discussed in detail the risk of exposure to and/or potential harm posed by the COVID-19 virus with having a surgery/procedure at this time versus the risk of delaying the surgery/procedure. It is not possible to know either the risk of delaying the surgery or procedure or chance of getting an infection with perfect accuracy, but a joint decision was made between the patient and the surgeon/proceduralist to proceed at this time with the scheduled surgery/procedure as indicated on the consent form.
--- NOTE | 2020-11-08 10:55 | CASEMGMT ---
LIZ GIL in to discuss PEREZ form with patient. RN LOUISE explained PEREZ form, patient voiced understanding. Patient signed PEREZ form and filed in chart. Patient provided copy of signed PEREZ form. Patient had no further questions or concerns at this time.
[2020-11-08] MEDS: Morphine 2 MG/ML Syringe IV (11:14)
[2020-11-08] MEDS: Propofol 200 MG/20 ML Vial 100 MG IV BOLUS (12:46)
--- NOTE | 2020-11-08 13:05 | CARDIOVERS ---
Cardioversion Cardioversion: Date: 11-08-2020 Procedure: Synchronized Biphasic DC Cardioversion Indications: Atrial flutter Consent: Per the Patient Anesthesia: per Dr. Gregory of pulmonology and critical care medicine with propofol 100 mg IV push total Procedure: Synchronized Biphasic DC Cardioversion: 50 J x 1: Result: Sinus rhythm Complications: no apparent complications This note was generated with Rapidleaation software. It may contain incorrect words, spelling, and punctuation that were not noted in checking the note before signing.
--- NOTE | 2020-11-08 13:07 | EKG12_ITS ---
Test Reason : POST CARDIOVERSION Blood Pressure : / mmHG Vent. Rate : 084 BPM Atrial Rate : 084 BPM P-R Int : 158 ms QRS Dur : 092 ms QT Int : 376 ms P-R-T Axes : 072 062 033 degrees QTc Int : 444 ms Normal sinus rhythm Nonspecific T wave abnormality Abnormal ECG When compared with ECG of 08-NOV-2020 05:21, MANUAL COMPARISON REQUIRED, DATA IS UNCONFIRMED Confirmed by RAMON HOLCOMB, GHAZALA ([id number]), photo editor ZIA NAJERA ([id number]) on 11/12/2020 9:35:30 AM Referred By: ANTONELLA Confirmed By:GHAZALA NAVARRO MD
--- NOTE | 2020-11-08 13:48 | PRO.PCM_ITS ---
Procedure Report Date of Procedure: 11/08/20 CONSCIOUS SEDATION REPORT DATE OF SERVICE: November 08, 2020 BRIEF HISTORY OF PRESENT ILLNESS: The patient is a 60-year-old male, currently admitted to the hospital after presenting with atrial flutter. The patient does have a history of atrial flutter/fibrillation and currently follows with an outside senior compensation consultant. He does report having undergone a cardioversion in the past. He denies any prior anesthetic complications. He does report a history of COPD and prior tobacco dependency. Additionally, the patient does report a history of sleep apnea, for which she is currently noncompliant with the use of nocturnal Pap therapy. His most recent surface echocardiogram revealed an ejection fraction of approximately 55%. The patient remained systemically anticoagulated. PHYSICAL EXAMINATION: VITAL SIGNS: Reviewed and were acceptable. GENERAL: The patient is an obese male, in no apparent distress, speaking in full sentences. HEENT: Normocephalic, atraumatic. Mucous membranes are moist and pink. Good mouth opening noted. Trachea is midline. CHEST: S1, S2 irregularly irregular. No murmurs, rubs or gallops were noted. LUNGS: Clear to auscultation bilaterally without appreciable wheezes, rales or rhonchi. ABDOMEN: Soft, nontender, nondistended. Positive bowel sounds. EXTREMITIES: There is no clubbing, cyanosis or edema. ASA Class: II DESCRIPTION OF PROCEDURE: After confirmation of informed consent, the patient's anesthesia plan was reviewed in detail. Propofol was chosen. Risks and benefits were reviewed and the patient agreed to proceed. At 1248, the patient was given his first bolus of propofol. In total, the patient required 100 mg of propofol throughout the procedure to achieve an appropriate level of sedation, after which time, the patient was given a 50 joule synchronized cardioversion by Dr. Morgan at the bedside. This was successful in achieving normal sinus rhythm. The patient was monitored until 1259, at which time he reached his baseline mental status and function. The patient tolerated the procedure well. COMPLICATIONS: None ESTIMATED BLOOD LOSS: None RECOMMENDATIONS: Okay to recover in usual fashion. Procedures Pulmonary 9xxxx: [id number] Con Sedation
--- NOTE | 2020-11-08 13:57 | DCINST_ITS ---
Discharge Instructions Diet Discharge Diet: Low fat / Low cholesterol Activity Discharge Activity: Return to Normal Activity Dressing / Incision Call your doctor if you observe: Shortness of breath, Dizziness, Chest pain and Increased palpitations (irregular heartbeat) Follow Up Care Test Results: Test results from this visit will be discussed in further detail at your follow-up appointment, if applicable. Discharge Plan Admission Admit Date/Time: 11/07/20 01:34 Primary Reason for Your Visit: Atrial flutter Attending Provider: Luis Washington Primary Care Provider: Melyssa Nevarez HEAD SOFT SUGAR OPERATOR Consulting Providers: Eze Morgan Instructions Additional Instructions / Restrictions: Hold lisinopril and amlodipine if systolic blood pressure (top number) is 100 or less. Discharge Orders/Prescriptions Prescriptions: New lisinopril 5 mg tablet 5 mg PO DAILY Qty: 30 RF: 0 Continued albuterol sulfate [Ventolin HFA] 1 INHALER inhaler 1 - 2 puff inhalation Q4H PRN PRN (Reason: Sob &/Or Wheezing) RF: 0 furosemide 40 mg tablet 40 mg PO QODAY RF: 0 ipratropium-albuterol 0.5 mg-3 mg(2.5 mg base)/3 mL Solution For Nebulization 3 ml INHALATION Q6H PRN PRN (Reason: Wheezing) RF: 0 amlodipine 5 mg tablet 5 mg PO DAILY RF: 0 aspirin 81 mg Tablet,Delayed Release (Dr/Ec) 81 mg PO DAILY RF: 0 pantoprazole 20 mg Tablet,Delayed Release (Dr/Ec) 40 mg PO BID RF: 0 ascorbic acid (vitamin C) [Vitamin C] 500 mg Tablet 500 mg PO DAILY RF: 0 tamsulosin 0.4 mg Capsule 0.4 mg PO DAILY RF: 0 metoprolol succinate 25 mg Tablet Extended Release 24 Hr 25 mg PO DAILY RF: 0 azelastine 137 mcg (0.1 %) Aerosol,[place] 2 spray INTRANASAL BID RF: 0 polyethylene glycol 3350 17 gram/dose powder 17 g PO DAILY RF: 0 fluticasone propionate 50 mcg/actuation spray,suspension 50 spray INTRANASAL DAILY RF: 0 vitamin B complex Capsule 1 cap PO DAILY RF: 0 diazepam [Valium] 5 mg tablet 5 mg PO BID RF: 0 tizanidine 2 mg Capsule 2 mg PO DAILY PRN (Reason: Muscle Spasm) RF: 0 cholecalciferol (vitamin D3) 25 mcg (1,000 unit) Tablet 25 mcg PO DAILY RF: 0 oxycodone 10 mg Tablet 10 mg PO Q4H PRN PRN (Reason: Pain) RF: 0 asenapine maleate [Saphris] 10 mg Tablet, Sublingual 10 mg SUBLINGUAL DAILY RF: 0 loratadine 10 mg Capsule 10 mg PO DAILY PRN (Reason: Allergic Symptoms) RF: 0 Eliquis 5 mg tablet 5 mg PO BID RF: 0 Trelegy Ellipta 100-62.5-25 mcg Blister With Device 1 inh INHALATION DAILY RF: 0 cephalexin 500 mg capsule 500 mg PO TID RF: 0 omega-3 fatty acids-vitamin E 1,000 mg Capsule 1 cap PO DAILY RF: 0 Centrum Silver Men 300-600-300 mcg Tablet 1 tab PO DAILY RF: 0 Discontinued lisinopril 10 MG tablet 10 mg PO BID RF: 0 Referrals / Follow Up: Cardiology, Primary [Other] - In 1 Week (Follow-up with primary coroner/medical examiner in 1 week.) Melyssa Nevarez HEAD SOFT SUGAR OPERATOR, HEAD SOFT SUGAR OPERATOR-C [Primary Care Provider] - In 1 Week Disposition Disposition (needs filled in before D/C Order can be placed): Home, Self Care
[2020-11-08] MEDS: Tamsulosin HCl 0.4 MG Capsule PO (14:00)
[2020-11-08] MEDS: Pantoprazole Sodium 40 MG Tablet PO (14:00)
[2020-11-08] MEDS: diazePAM 5 MG Tablet PO (14:00)
[2020-11-08] MEDS: Vitamin B Comp W-C Capsule 1 CAP PO (14:00)
[2020-11-08] MEDS: Ascorbic Acid 500 MG Tablet PO (14:00)
[2020-11-08] MEDS: Aspirin E.C. 81 MG Tablet PO (14:00)
[2020-11-08] MEDS: Cholecalciferol (VIT D3) 25 MCG TABLET (1,000 UNITS) PO (14:00)
[2020-11-08] MEDS: Polyethylene Glycol 3350 17 GM PACKET PO (14:01)
[2020-11-08] MEDS: Metoprolol(XL)Succ 25 MG Tablet PO (14:01)
[2020-11-08] MEDS: Multivitamins,Ther W-Minerals Tablet 1 TABLET PO (14:01)
[2020-11-08] MEDS: APIXABAN 5 MG TABLET PO (14:01)
--- NOTE | 2020-11-08 14:12 | PCM.DC.SUM ---
Documented by User: Karol Cr NP, NP-C 11/08/20 14:22 Providers Date of Admission: 11/07/20 Date of Discharge: 11/08/20 Primary Care Physician: ZAHIDA Huber Consultations 11/07/20 02:21 Consult: Cardiology Routine Consulting Provider: Eze Morgan Reason for Consult: Atrial flutter/AFib EMERGENT Consult: No MD Notified: Yes Date Notified: 11/07/20 Time Notified: 06:45 Method of Notification: Text Reason For Visit: SYNCOPE Diagnosis Discharge Diagnosis (1) Atrial flutter: Status: Acute Code(s): I48.92 - Unspecified atrial flutter Qualifiers: Atrial flutter type: typical Qualified Code(s): I48.3 - Typical atrial flutter (2) Syncope: Status: Acute Code(s): R55 - Syncope and collapse Qualifiers: Syncope type: unspecified Qualified Code(s): R55 - Syncope and collapse (3) Hypotension: Status: Acute Code(s): I95.9 - Hypotension, unspecified Qualifiers: Hypotension type: unspecified hypotension type Qualified Code(s): I95.9 - Hypotension, unspecified Medications at Discharge Home Medications albuterol sulfate [Ventolin HFA] 1 - 2 puff INHALATION Q4H PRN PRN 05/29/16 Eliquis 5 mg PO BID 11/06/20 Trelegy Ellipta 1 inh INHALATION DAILY 11/06/20 amlodipine 5 mg PO DAILY 11/06/20 ascorbic acid (vitamin C) [Vitamin C] 500 mg PO DAILY 11/06/20 asenapine maleate [Saphris] 10 mg SUBLINGUAL DAILY 11/06/20 aspirin 81 mg PO DAILY 11/06/20 azelastine 2 spray INTRANASAL BID 11/06/20 cholecalciferol (vitamin D3) 25 mcg PO DAILY 11/06/20 diazepam [Valium] 5 mg PO BID 11/06/20 fluticasone propionate 50 spray INTRANASAL DAILY 11/06/20 furosemide 40 mg PO QODAY 11/06/20 ipratropium-albuterol 3 ml INHALATION Q6H PRN PRN 11/06/20 loratadine 10 mg PO DAILY PRN 11/06/20 metoprolol succinate 25 mg PO DAILY 11/06/20 oxycodone 10 mg PO Q4H PRN PRN 11/06/20 pantoprazole 40 mg PO BID 11/06/20 polyethylene glycol 3350 17 g PO DAILY 11/06/20 tamsulosin 0.4 mg PO DAILY 11/06/20 tizanidine 2 mg PO DAILY PRN 11/06/20 vitamin B complex 1 cap PO DAILY 11/06/20 Centrum Silver Men 1 tab PO DAILY 11/07/20 cephalexin 500 mg PO TID 11/07/20 omega-3 fatty acids-vitamin E 1 cap PO DAILY 11/07/20 lisinopril 5 mg PO DAILY #30 tab 11/08/20 Hospital Course Operations None Procedures Cardioversion Summary of Care Provided Minutes Spent on Discharge: 35 Hospital Course: Patient is a 60-year-old male admitted 11/07/20 due to syncope. 1. Recurrent paroxysmal atrial flutter-cardiology consulted. Converted to sinus rhythm following synchronized cardioversion. Continue metoprolol, Eliquis. Patient follows with cardiology in [place]. Follow-up in 1 week. 2. Recurrent syncope/dizziness-suspect secondary to #1 as well as hypotension. Echo with EF 55%. Hold parameters placed on BP regimen. Lisinopril reduced to 5 mg daily. Continue follow-up with primary pattern stamper. 4. Chronic heart failure with preserved ejection fraction-continue home regimen. 5. Nonobstructive CAD-continue aspirin, statin. 6. GATO-continue home PAP regimen. 7. Chronic COPD-no exacerbation. 8. GERD-continue PPI. 9. Former tobacco use-encouraged cessation. 10. Hypertension-lisinopril reduced to 5 mg daily. Instructed on hold parameters for lisinopril, amlodipine, Lasix. 11. Hyperlipidemia-continue statin. Patient seen and examined prior to discharge. Physical assessment as noted below. Patient is stable for discharge with follow up recommendations as noted above. This patient was seen by ZAHIDA Hopkins under the supervision of Dr. Washington. Physical Exam Const alert, oriented x3 and no apparent distress Orientation / Consciousness: awake, oriented to person, oriented to place and oriented to time HEENT normocephalic and moist oral mucous membranes Eyes PERRL, EOMs intact bilaterally and conjunctivae normal Neck no lymphadenopathy Resp normal respiratory effort and clear to auscultation bilaterally Cardio regular rate, regular rhythm and no murmurs Peripheral Pulses: pulses 2+ throughout GI normal to inspection, nondistended, normoactive bowel sounds, non-tender and non-distended Extremity normal to inspection Skin no rashes or lesions noted Lesions: no lesions Rashes: no rashes Trauma: no lacerations or abrasions Neuro CN's II-XII intact bilaterally, no focal motor deficits, no sensory deficits noted and deep tendon reflexes 2+ bilaterally Psych mental status grossly normal and affect normal Weight / BMI Weight Weight: 246 lb 0.574 oz Body Mass Index (BMI) 33.3 ABG / Lab / Microbiology Data Result Diagrams: 11/08/20 06:20 11/08/20 06:20 Laboratory: Laboratory Results - last 24 hr 11/08/20 06:20: WBC 6.6, RBC 4.29 L, Hgb 12.4 L, Hct 38.6 L, MCV 90.0, MCH 28.9, MCHC 32.1, RDW Std Deviation 56.2 H, RDW Coeff of Jennifer 17.1 H, Plt Count 179, MPV 9.9, Immature Gran % (Auto) 0.300, Neut % (Auto) 60.5, Lymph % (Auto) 25.5, [place] % (Auto) 9.9, Eos % (Auto) 2.7, Baso % (Auto) 1.1 H, Absolute Neuts (auto) 4.0, Absolute Lymphs (auto) 1.68, Nucleated RBC % 0 11/08/20 06:20: Sodium 139, Potassium 4.2, Chloride 107, Carbon Dioxide 28.0, Anion Gap 4 L, BUN 15, Creatinine 0.91, Estim Creat Clear Calc 92.38, Est GFR (MDRD) Af Amer 108, Est GFR (MDRD) Non-Af 89, BUN/Creatinine Ratio 16.4, Glucose 101, Calcium 9.3 Radiography Diagnostic Testing: Radiology Impression Brain MRI 11/07/20 11:44 IMPRESSION: Normal unenhanced MRI of the brain. Electronically Signed: Hi Beck MD at 15:30 EDT Tel , Service support , D/C Instructions Discharge Diet: Low fat / Low cholesterol Call your doctor if you observe: Shortness of breath, Dizziness, Chest pain and Increased palpitations (irregular heartbeat) Meaningful Use Info Meaningful Use Diagnoses (Choose all that apply): None applicable Discharge Plan Admission Admit Date/Time: 11/07/20 01:34 Primary Reason for Your Visit: Atrial flutter Attending Provider: Luis Washington Primary Care Provider: Melyssa Nevarez NP Consulting Providers: Eze Morgan Instructions Additional Instructions / Restrictions: Patient Problems: Altered Health Status related to Hospitalization Patient Goals: *Optimal Level of Health *Keep Appointments *Medication Compliance *Remain SafeHold lisinopril and amlodipine if systolic blood pressure (top number) is 100 or less. Discharge Orders/Prescriptions Prescriptions: New lisinopril 5 mg tablet 5 mg PO DAILY Qty: 30 RF: 0 Continued albuterol sulfate [Ventolin HFA] 1 INHALER inhaler 1 - 2 puff inhalation Q4H PRN PRN (Reason: Sob &/Or Wheezing) RF: 0 furosemide 40 mg tablet 40 mg PO QODAY RF: 0 ipratropium-albuterol 0.5 mg-3 mg(2.5 mg base)/3 mL Solution For Nebulization 3 ml INHALATION Q6H PRN PRN (Reason: Wheezing) RF: 0 amlodipine 5 mg tablet 5 mg PO DAILY RF: 0 aspirin 81 mg Tablet,Delayed Release (Dr/Ec) 81 mg PO DAILY RF: 0 pantoprazole 20 mg Tablet,Delayed Release (Dr/Ec) 40 mg PO BID RF: 0 ascorbic acid (vitamin C) [Vitamin C] 500 mg Tablet 500 mg PO DAILY RF: 0 tamsulosin 0.4 mg Capsule 0.4 mg PO DAILY RF: 0 metoprolol succinate 25 mg Tablet Extended Release 24 Hr 25 mg PO DAILY RF: 0 azelastine 137 mcg (0.1 %) Aerosol,[place] 2 spray INTRANASAL BID RF: 0 polyethylene glycol 3350 17 gram/dose powder 17 g PO DAILY RF: 0 fluticasone propionate 50 mcg/actuation spray,suspension 50 spray INTRANASAL DAILY RF: 0 vitamin B complex Capsule 1 cap PO DAILY RF: 0 diazepam [Valium] 5 mg tablet 5 mg PO BID RF: 0 tizanidine 2 mg Capsule 2 mg PO DAILY PRN (Reason: Muscle Spasm) RF: 0 cholecalciferol (vitamin D3) 25 mcg (1,000 unit) Tablet 25 mcg PO DAILY RF: 0 oxycodone 10 mg Tablet 10 mg PO Q4H PRN PRN (Reason: Pain) RF: 0 asenapine maleate [Saphris] 10 mg Tablet, Sublingual 10 mg SUBLINGUAL DAILY RF: 0 loratadine 10 mg Capsule 10 mg PO DAILY PRN (Reason: Allergic Symptoms) RF: 0 Eliquis 5 mg tablet 5 mg PO BID RF: 0 Trelegy Ellipta 100-62.5-25 mcg Blister With Device 1 inh INHALATION DAILY RF: 0 cephalexin 500 mg capsule 500 mg PO TID RF: 0 omega-3 fatty acids-vitamin E 1,000 mg Capsule 1 cap PO DAILY RF: 0 Centrum Silver Men 300-600-300 mcg Tablet 1 tab PO DAILY RF: 0 Discontinued lisinopril 10 MG tablet 10 mg PO BID RF: 0 Referrals / Follow Up: Cardiology, Primary [Other] - In 1 Week (Follow-up with primary pattern stamper in 1 week.) Melyssa Nevarez CMO & PRESIDENT, CMO & PRESIDENT-C [Primary Care Provider] - In 1 Week Disposition Disposition (needs filled in before D/C Order can be placed): Home, Self Care Documented by User: Dr. Luis Washington MD 11/08/20 18:23 Providers Date of Admission: 11/07/20 Reason For Visit: SYNCOPE Medications at Discharge Home Medications albuterol sulfate [Ventolin HFA] 1 - 2 puff INHALATION Q4H PRN PRN 05/29/16 Eliquis 5 mg PO BID 11/06/20 Trelegy Ellipta 1 inh INHALATION DAILY 11/06/20 amlodipine 5 mg PO DAILY 11/06/20 ascorbic acid (vitamin C) [Vitamin C] 500 mg PO DAILY 11/06/20 asenapine maleate [Saphris] 10 mg SUBLINGUAL DAILY 11/06/20 aspirin 81 mg PO DAILY 11/06/20 azelastine 2 spray INTRANASAL BID 11/06/20 cholecalciferol (vitamin D3) 25 mcg PO DAILY 11/06/20 diazepam [Valium] 5 mg PO BID 11/06/20 fluticasone propionate 50 spray INTRANASAL DAILY 11/06/20 furosemide 40 mg PO QODAY 11/06/20 ipratropium-albuterol 3 ml INHALATION Q6H PRN PRN 11/06/20 loratadine 10 mg PO DAILY PRN 11/06/20 metoprolol succinate 25 mg PO DAILY 11/06/20 oxycodone 10 mg PO Q4H PRN PRN 11/06/20 pantoprazole 40 mg PO BID 11/06/20 polyethylene glycol 3350 17 g PO DAILY 11/06/20 tamsulosin 0.4 mg PO DAILY 11/06/20 tizanidine 2 mg PO DAILY PRN 11/06/20 vitamin B complex 1 cap PO DAILY 11/06/20 Centrum Silver Men 1 tab PO DAILY 11/07/20 cephalexin 500 mg PO TID 11/07/20 omega-3 fatty acids-vitamin E 1 cap PO DAILY 11/07/20 lisinopril 5 mg PO DAILY #30 tab 11/08/20 Hospital Course Summary of Care Provided Hospital Course: This patient was seen in conjunction with CMO & PRESIDENTKarol. I have independently interviewed and examined the patient and reviewed pertinent history, examination findings, laboratory and plan of management. I have reviewed the note and agree with the documented findings with the few additional points. In brief, patient is admitted for recurrent syncope with dizziness probably secondary to paroxysmal A. fib. Patient also had mild hypotension. 2D echo shows EF 55%. Patient was cardioverted by pattern stamper. Patient on metoprolol and Eliquis advised to hold it if heart rate less than 60/min. Lisinopril was decreased to 5 mg daily advised to follow with primary pattern stamper. Other comorbidities as mentioned above including chronic respiratory failure. I have discussed my assessment with Karol RAMÍREZ and orders have been reviewed. Physical Exam Narrative Patient has atrial flutter. Was cardioverted in the afternoon. Converted to sinus rhythm. Patient had low blood pressure 98/66 in afternoon after light sedation for cardioversion General: Alert, Oriented x3, Cooperative HEENT: Atraumatic, PERRLA, EOMI, Normocephalic Oral: No Gingival or Mucosal Lesions/ Ulcerations Neck: Supple, No JVD, Negative Carotid Bruits Lungs: Air entry diminished in bilateral lung bases. No crepitation/rhonchi Cardiovascular: Regular rate, Regular Rhythm, Normal S1, Normal S2, No murmurs Abdomen: Bowel Sounds Present, Soft, Non Tender, Non-Distended : No renal angle tenderness. No suprapubic tenderness. Extremities: No edema, Capillary Refill Less than 3 Seconds Skin: No rashes, No breakdown Musculoskeletal: No Tenderness to Palpation of Joints or Extremities Neurological: Cranial nerves II-XII grossly intact, DTR 2+/4 and Symmetrical, Neuro grossly intact Psych/Mental Status: Normal Affect, Appropriate. ABG / Lab / Microbiology Data Result Diagrams: 11/08/20 06:20 11/08/20 06:20 Discharge Plan Admission Admit Date/Time: 11/07/20 01:34 Primary Reason for Your Visit: Atrial flutter Attending Provider: Luis Washington Primary Care Provider: Melyssa Nevarez NP Consulting Providers: Eze Morgan Instructions Additional Instructions / Restrictions: Patient Problems: Altered Health Status related to Hospitalization Patient Goals: *Optimal Level of Health *Keep Appointments *Medication Compliance *Remain SafeHold lisinopril and amlodipine if systolic blood pressure (top number) is 100 or less. Discharge Orders/Prescriptions Prescriptions: New lisinopril 5 mg tablet 5 mg PO DAILY Qty: 30 RF: 0 Continued albuterol sulfate [Ventolin HFA] 1 INHALER inhaler 1 - 2 puff inhalation Q4H PRN PRN (Reason: Sob &/Or Wheezing) RF: 0 furosemide 40 mg tablet 40 mg PO QODAY RF: 0 ipratropium-albuterol 0.5 mg-3 mg(2.5 mg base)/3 mL Solution For Nebulization 3 ml INHALATION Q6H PRN PRN (Reason: Wheezing) RF: 0 amlodipine 5 mg tablet 5 mg PO DAILY RF: 0 aspirin 81 mg Tablet,Delayed Release (Dr/Ec) 81 mg PO DAILY RF: 0 pantoprazole 20 mg Tablet,Delayed Release (Dr/Ec) 40 mg PO BID RF: 0 ascorbic acid (vitamin C) [Vitamin C] 500 mg Tablet 500 mg PO DAILY RF: 0 tamsulosin 0.4 mg Capsule 0.4 mg PO DAILY RF: 0 metoprolol succinate 25 mg Tablet Extended Release 24 Hr 25 mg PO DAILY RF: 0 azelastine 137 mcg (0.1 %) Aerosol,[place] 2 spray INTRANASAL BID RF: 0 polyethylene glycol 3350 17 gram/dose powder 17 g PO DAILY RF: 0 fluticasone propionate 50 mcg/actuation spray,suspension 50 spray INTRANASAL DAILY RF: 0 vitamin B complex Capsule 1 cap PO DAILY RF: 0 diazepam [Valium] 5 mg tablet 5 mg PO BID RF: 0 tizanidine 2 mg Capsule 2 mg PO DAILY PRN (Reason: Muscle Spasm) RF: 0 cholecalciferol (vitamin D3) 25 mcg (1,000 unit) Tablet 25 mcg PO DAILY RF: 0 oxycodone 10 mg Tablet 10 mg PO Q4H PRN PRN (Reason: Pain) RF: 0 asenapine maleate [Saphris] 10 mg Tablet, Sublingual 10 mg SUBLINGUAL DAILY RF: 0 loratadine 10 mg Capsule 10 mg PO DAILY PRN (Reason: Allergic Symptoms) RF: 0 Eliquis 5 mg tablet 5 mg PO BID RF: 0 Trelegy Ellipta 100-62.5-25 mcg Blister With Device 1 inh INHALATION DAILY RF: 0 cephalexin 500 mg capsule 500 mg PO TID RF: 0 omega-3 fatty acids-vitamin E 1,000 mg Capsule 1 cap PO DAILY RF: 0 Centrum Silver Men 300-600-300 mcg Tablet 1 tab PO DAILY RF: 0 Discontinued lisinopril 10 MG tablet 10 mg PO BID RF: 0 Referrals / Follow Up: Cardiology, Primary [Other] - In 1 Week (Follow-up with primary pattern stamper in 1 week.) Melyssa Nevarez CMO & PRESIDENT, CMO & PRESIDENT-C [Primary Care Provider] - In 1 Week Disposition Disposition (needs filled in before D/C Order can be placed): Home, Self Care Charges/Coding Visit Charges OBSV E&M: 74676 Observation care discharge
--- NOTE | 2020-11-08 15:55 | PHA.DC.MC ---
Pharmacy Service has performed discharge medication reconciliation and counseling for this patient. The patient is not on any new medications. Patient did have a dose decrease in lisinopril. made patient aware. The patient was able to verbally demonstrate an understanding of their discharge medications. Home Medications albuterol sulfate [Ventolin HFA] 1 - 2 puff INHALATION Q4H PRN PRN 05/29/16 Eliquis 5 mg PO BID 11/06/20 Trelegy Ellipta 1 inh INHALATION DAILY 11/06/20 amlodipine 5 mg PO DAILY 11/06/20 ascorbic acid (vitamin C) [Vitamin C] 500 mg PO DAILY 11/06/20 asenapine maleate [Saphris] 10 mg SUBLINGUAL DAILY 11/06/20 aspirin 81 mg PO DAILY 11/06/20 azelastine 2 spray INTRANASAL BID 11/06/20 cholecalciferol (vitamin D3) 25 mcg PO DAILY 11/06/20 diazepam [Valium] 5 mg PO BID 11/06/20 fluticasone propionate 50 spray INTRANASAL DAILY 11/06/20 furosemide 40 mg PO QODAY 11/06/20 ipratropium-albuterol 3 ml INHALATION Q6H PRN PRN 11/06/20 loratadine 10 mg PO DAILY PRN 11/06/20 metoprolol succinate 25 mg PO DAILY 11/06/20 oxycodone 10 mg PO Q4H PRN PRN 11/06/20 pantoprazole 40 mg PO BID 11/06/20 polyethylene glycol 3350 17 g PO DAILY 11/06/20 tamsulosin 0.4 mg PO DAILY 11/06/20 tizanidine 2 mg PO DAILY PRN 11/06/20 vitamin B complex 1 cap PO DAILY 11/06/20 Centrum Silver Men 1 tab PO DAILY 11/07/20 cephalexin 500 mg PO TID 11/07/20 omega-3 fatty acids-vitamin E 1 cap PO DAILY 11/07/20 lisinopril 5 mg PO DAILY #30 tab 11/08/20 The patient's discharge medication list was reviewed for discrepancies and discrepancies were resolved.
== END 2020-11-08 13:58 | disposition home or self-care (01) ==
LOC: ED 11-07 01:18 → PCU 11-07 02:00
PROVIDERS: Nurse Practitioner Family; Physician Assistant; Admitting Provider Family Medicine; Emergency Provider Emergency Medicine; PCP Nurse Practitioner Family; Visit Provider Internal Medicine
DX: I48.3 Typical atrial flutter (principal); R55 Syncope and collapse; J44.9 Chronic obstructive pulmonary disease, unspecified; I48.0 Paroxysmal atrial fibrillation; G89.29 Other chronic pain; I11.0 Hypertensive heart disease with heart failure; K21.9 Gastro-esophageal reflux disease without esophagitis; I50.32 Chronic diastolic (congestive) heart failure; I25.2 Old myocardial infarction; G47.33 Obstructive sleep apnea (adult) (pediatric); F41.9 Anxiety disorder, unspecified; N40.0 Benign prostatic hyperplasia without lower urinary tract symptoms; E66.9 Obesity, unspecified; E78.5 Hyperlipidemia, unspecified; F17.210 Nicotine dependence, cigarettes, uncomplicated; F31.9 Bipolar disorder, unspecified; I25.10 Atherosclerotic heart disease of native coronary artery without angina pectoris; Z79.899 Other long term (current) drug therapy; Z79.01 Long term (current) use of anticoagulants; Z79.82 Long term (current) use of aspirin; Z79.51 Long term (current) use of inhaled steroids; I95.9 Hypotension, unspecified; Z91.19 Patient's noncompliance with other medical treatment and regimen
CPT/HCPCS: 92960; 36415; 70450; 70551; 80048; 83605; 83735; 84443; 84484; 85025; 93005; 93306; 94640; 96361; 96374; 96376; 97162; 97166; 97530; 99218; 99251; 99285; 99406; J7030; A4216; G0378; G0463

== ENCOUNTER 2020-11-25 13:09 | Emergency (ER) | payer MEDICARE, SELFPAY ==
[2020-11-25 13:13] VITALS: BP 149/125; PULSE 106; RESP 14; TEMP 36.8; O2SAT 96; BMI 33.7
[2020-11-25 13:22] VITALS: BP 126/78; PULSE 91; RESP 11; O2SAT 99
--- NOTE | 2020-11-25 13:36 | EKG12_ITS ---
Test Reason : CP Blood Pressure : / mmHG Vent. Rate : 096 BPM Atrial Rate : 288 BPM P-R Int : 000 ms QRS Dur : 088 ms QT Int : 336 ms P-R-T Axes : 000 031 021 degrees QTc Int : 424 ms Atrial flutter with variable A-V block T wave abnormality, consider inferior ischemia Abnormal ECG Confirmed by RAMON HOLCOMB, GHAZALA ([id number]), features editor ZIA NAJERA ([id number]) on 11/26/2020 1:40:08 PM Referred By: JEFF Confirmed By:GHAZALA NAVARRO MD
--- NOTE | 2020-11-25 13:37 | EDS_ITS ---
HPI History of Present Illness Chief Complaint: Chest Pain Detail of Chief Complaint: Chest pressure, generalized weakness Informant: patient Narrative Narrative: Patient presents to the emergency department via EMS from home. Patient states that he has a history of atrial flutter and was admitted a couple weeks ago and had cardioversion. He is currently on Eliquis. He has been compliant with his medications. Patient sees a Dr. Rothman a surface water technician out of [facility] and [facility] who was supposed to call him in another medication and apparently that did not happen. Patient was also told that he may need to see a boot turner to have an ablation at some point. Patient states 2 days ago he started feeling increased fatigue and some mild shortness of breath as well as chest pressure which is typically what happens when he gets in to his a flutter. Patient states that he had a heart catheterization about 8 months ago and that was unremarkable. Patient denies recent illness. Prior similar symptoms: Yes PFSH PFS Medical History Anxiety Atherosclerotic heart disease [place] coronary artery w/angina pectoris Atrial flutter with rapid ventricular response Bipolar disorder Chronic diastolic heart failure Congestive heart failure GERD (gastroesophageal reflux disease) Gout Hypertension Hyponatremia Lumbar post-laminectomy syndrome NSTEMI (non-ST elevated myocardial infarction) Pneumonia Shoulder girdle symptom Sleep apnea Umbilical hernia Home Medications albuterol sulfate [Ventolin HFA] 1 - 2 puff INHALATION Q4H PRN PRN 05/29/16 [History Last Taken Unknown] Eliquis 5 mg PO BID 11/06/20 [History Last Taken Unknown] Trelegy Ellipta 1 inh INHALATION DAILY 11/06/20 [History Last Taken Unknown] amlodipine 5 mg PO DAILY 11/06/20 [History Last Taken Unknown] ascorbic acid (vitamin C) [Vitamin C] 500 mg PO DAILY 11/06/20 [History Last Taken Unknown] asenapine maleate [Saphris] 10 mg SUBLINGUAL DAILY 11/06/20 [History Last Taken Unknown] aspirin 81 mg PO DAILY 11/06/20 [History Last Taken Unknown] azelastine 2 spray INTRANASAL BID 11/06/20 [History Last Taken Unknown] cholecalciferol (vitamin D3) 25 mcg PO DAILY 11/06/20 [History Last Taken Unknown] diazepam [Valium] 5 mg PO BID 11/06/20 [History Last Taken Unknown] fluticasone propionate 50 spray INTRANASAL DAILY 11/06/20 [History Last Taken Unknown] furosemide 40 mg PO QODAY 11/06/20 [History Last Taken Unknown] ipratropium-albuterol 3 ml INHALATION Q6H PRN PRN 11/06/20 [History Last Taken Unknown] loratadine 10 mg PO DAILY PRN 11/06/20 [History Last Taken Unknown] metoprolol succinate 25 mg PO DAILY 11/06/20 [History Last Taken Unknown] oxycodone 10 mg PO Q4H PRN PRN 11/06/20 [History Last Taken Unknown] pantoprazole 40 mg PO BID 11/06/20 [History Last Taken Unknown] polyethylene glycol 3350 17 g PO DAILY 11/06/20 [History Last Taken Unknown] tamsulosin 0.4 mg PO DAILY 11/06/20 [History Last Taken Unknown] tizanidine 2 mg PO DAILY PRN 11/06/20 [History Last Taken Unknown] vitamin B complex 1 cap PO DAILY 11/06/20 [History Last Taken Unknown] Centrum Silver Men 1 tab PO DAILY 11/07/20 [History Last Taken Unknown] cephalexin 500 mg PO TID 11/07/20 [History Last Taken Unknown] omega-3 fatty acids-vitamin E 1 cap PO DAILY 11/07/20 [History Last Taken Unknown] lisinopril 5 mg PO DAILY #30 tab 11/08/20 [Rx Last Taken Unknown] Allergy/AdvReac Type Severity Reaction Status Date / Time No Known Allergies Allergy Verified 11/25/20 13:13 Social History Smoking Status: Former smoker ROS ROS ED ROS Narrative Fatigue Constitutional Constitutional ED: Reports systems reviewed and no addt'l complaints, except as documented; Denies body ache(s), change in weight or chills Eyes Eyes: Denies acute decrease in peripheral vision, change in vision, double vision or loss of vision ENT ENT ED: Reports none; Denies ear pain, lip swelling, loss taste/smell, neck pain, otalgia or sore throat Cardiovascular Cardiovascular: Reports none, chest pain, palpitations and racing heartbeat; Denies abdominal pain, chest pain with activity, leg edema, lightheadedness, rapid heart rate or syncope Respiratory/Chest Respiratory/Chest: Reports none; Denies change in mental status, dry cough, dyspnea, hemoptysis, shortness of breath at rest or shortness of breath with exertion Gastrointestinal Gastrointestinal: Reports none; Denies abdominal pain, change in stool character, diarrhea, hematemesis, hematochezia, melena, rectal bleeding or vomiting Genitourinary Genitourinary ED: Reports none; Denies abdominal discomfort, anuria, dysuria, genital pain or polyuria Musculoskeletal Musculoskeletal: Reports none; Denies arthralgias, back pain, difficulty walking, extremity pain, muscle weakness or myalgias Integumentary Reports none; Denies abscess or rash Neurologic Neurologic: Reports none; Denies abnormal gait, confusion, focal weakness, frequent falls, headache(s), loss of vision, numbness, paresthesias, radicular pain, vertigo or weakness Psychiatric Psychiatric: Reports systems reviewed and no addt'l complaints, except as documented and none; Denies behavioral changes, confusion, difficulty concentrating, hallucinations, suicidal ideation, tactile hallucinations or visual hallucinations Endocrine Endocrinology: Denies none, cold intolerance, excessive sweating, fatigue or heat intolerance Hematologic/Lymphatic Hematologic/Lymphatic: Reports none; Denies anemia, easy bleeding or easy bruising Allergic/Immunologic Allergic/Immunologic ED: Denies as per HPI, none, lip swelling, mouth swelling, throat swelling, tongue swelling or hives EXAM Physical Exam Const Vital Signs: 11/25/20 13:13 11/25/20 13:22 11/25/20 13:23 Temperature 98.2 F Temperature Source Oral Pulse Rate 106 H 91 Respiratory Rate 14 11 L Respiratory Effort Normal Non-Labored Respiratory Pattern Normal Blood Pressure 149/125 H 126/78 H Blood Pressure Mean 133 94 Pulse Ox 96 99 Oxygen Delivery Method Room Air Nasal Cannula Oxygen Flow Rate (L/min) 2 11/25/20 13:59 11/25/20 14:25 Temperature Temperature Source Pulse Rate 112 H 67 Respiratory Rate 12 10 L Respiratory Effort Respiratory Pattern Blood Pressure 122/74 H Blood Pressure Mean 90 Pulse Ox 98 98 Oxygen Delivery Method Nasal Cannula Nasal Cannula Oxygen Flow Rate (L/min) 2 2 Positive well nourished and well developed General Appearance ED: well developed and NAD HEENT Reports TM's clear and moist mucous membranes normocephalic and atraumatic; Negative for trauma or tenderness Tympanic Membrane ED: Yes TM's clear Eyes PERRL and EOMs intact bilaterally General Eye ED: Negative for pale conjunctiva or scleral icterus Neck no lymphadenopathy, supple and no JVD General: Negative for tenderness Chest Wall inspection of chest normal and palpation of chest normal Chest: Negative for tenderness Resp normal respiratory effort and clear to auscultation bilaterally Effort and Inspection: Negative for respiratory distress or pain with movement Auscultation: Negative for rhonchi, wheezes or diminished lung sounds Cardio S1 normal heart sound, S2 normal heart sound and no murmurs Rate: tachycardic and other Other Details: Irregularly irregular Peripheral Pulses: pulses 2+ throughout GI normal to inspection, nondistended, normoactive bowel sounds, soft to palpation, non-tender, non-distended and no masses Back/Spine no CVA tenderness and no thoracic nor lumbar tenderness Extremity normal to inspection General Extremety ED: Negative for edema General Extremity: Negative for edema Neuro oriented x3, CN's II-XII intact bilaterally, no sensory deficits noted and gait normal Sensorium / Orientation: awake, alert, oriented to person, oriented to place and oriented to time Motor Exam: strength 5/5 throughout and strength abnormal Psych mental status grossly normal Skin no rashes or lesions noted and no wounds MDM MDM MDM Narrative Medical decision making narrative: Case discussed with patient's surface water technician Debbie Rothman who was comfortable with patient going home and wanted to see the patient in the office tomorrow morning at 9 AM. Patient is comfortable with this and actually is asking to go home. I did give him Cardizem 20 mg IV bolus on arrival and this did improve his heart rate in the 70s. Patient is feeling well otherwise. Patient already anticoagulated and his lab work-up is otherwise unremarkable. Lab Data Labs: Laboratory Results - last 24 hr 11/25/20 11/25/20 13:19 13:19 WBC 6.8 RBC 4.66 Hgb 13.3 Hct 42.3 MCV 90.8 MCH 28.5 MCHC 31.4 L RDW Std Deviation 56.3 H RDW Coeff of Jennifer 16.7 H Plt Count 266 MPV 9.8 Immature Gran % (Auto) 0.300 Neut % (Auto) 64.5 Lymph % (Auto) 22.6 Hawkins % (Auto) 9.2 Eos % (Auto) 2.1 Baso % (Auto) 1.3 H Absolute Neuts (auto) 4.4 Absolute Lymphs (auto) 1.53 Nucleated RBC % 0 Sodium 139 Potassium 4.2 Chloride 103 Carbon Dioxide 29.0 Anion Gap 7 BUN 11 Creatinine 1.13 Estim Creat Clear Calc 76.60 Est GFR (MDRD) Af Amer 84 Est GFR (MDRD) Non-Af 70 BUN/Creatinine Ratio 9.7 L Glucose 122 H Calcium 10.0 Troponin I High Sens 6 Radiography Chest X-Ray - ED: 1 View Diagnostic Testin view chest x-ray obtained interpreted by myself as no acute disease process. Patient has a mild cardiomegaly. Official report from radiology pending. EKG Initial EKG: Comments: Atrial flutter with a ventricular rate of [address] changes Discharge Plan Triage Chief Complaint: Chest Pain ED Provider: Harjeet Lorenzana Dx/Rx/DC Orders Clinical Impression: Atrial fibrillation and flutter Instructions: ED Atrial Flutter Prescriptions: No Action albuterol sulfate [Ventolin HFA] 1 INHALER inhaler 1 - 2 puff inhalation Q4H PRN PRN (Reason: Sob &/Or Wheezing) RF: 0 furosemide 40 mg tablet 40 mg PO QODAY RF: 0 ipratropium-albuterol 0.5 mg-3 mg(2.5 mg base)/3 mL Solution For Nebulization 3 ml INHALATION Q6H PRN PRN (Reason: Wheezing) RF: 0 amlodipine 5 mg tablet 5 mg PO DAILY RF: 0 aspirin 81 mg Tablet,Delayed Release (Dr/Ec) 81 mg PO DAILY RF: 0 pantoprazole 20 mg Tablet,Delayed Release (Dr/Ec) 40 mg PO BID RF: 0 ascorbic acid (vitamin C) [Vitamin C] 500 mg Tablet 500 mg PO DAILY RF: 0 tamsulosin 0.4 mg Capsule 0.4 mg PO DAILY RF: 0 metoprolol succinate 25 mg Tablet Extended Release 24 Hr 25 mg PO DAILY RF: 0 azelastine 137 mcg (0.1 %) Aerosol,[place] 2 spray INTRANASAL BID RF: 0 polyethylene glycol 3350 17 gram/dose powder 17 g PO DAILY RF: 0 fluticasone propionate 50 mcg/actuation spray,suspension 50 spray INTRANASAL DAILY RF: 0 vitamin B complex Capsule 1 cap PO DAILY RF: 0 diazepam [Valium] 5 mg tablet 5 mg PO BID RF: 0 tizanidine 2 mg Capsule 2 mg PO DAILY PRN (Reason: Muscle Spasm) RF: 0 cholecalciferol (vitamin D3) 25 mcg (1,000 unit) Tablet 25 mcg PO DAILY RF: 0 oxycodone 10 mg Tablet 10 mg PO Q4H PRN PRN (Reason: Pain) RF: 0 asenapine maleate [Saphris] 10 mg Tablet, Sublingual 10 mg SUBLINGUAL DAILY RF: 0 loratadine 10 mg Capsule 10 mg PO DAILY PRN (Reason: Allergic Symptoms) RF: 0 Eliquis 5 mg tablet 5 mg PO BID RF: 0 Trelegy Ellipta 100-62.5-25 mcg Blister With Device 1 inh INHALATION DAILY RF: 0 cephalexin 500 mg capsule 500 mg PO TID RF: 0 omega-3 fatty acids-vitamin E 1,000 mg Capsule 1 cap PO DAILY RF: 0 Centrum Silver Men 300-600-300 mcg Tablet 1 tab PO DAILY RF: 0 lisinopril 5 mg tablet 5 mg PO DAILY Qty: 30 RF: 0 Primary Care Provider: Melyssa Nevarez NP Referrals: Melyssa Nevarez NP, [facility] [Primary Care Provider] - Activity Restrictions/Additional Instructions: See Dr. Rothman tomorrow at 9 AM Disposition Disposition: Home, Self Care
[2020-11-25 13:56] LABS: Absolute Lymphocyte Count 1.53 X10^3/uL (0.83-4.51); Absolute Neutrophil Count 4.4 X10^3/uL (2.0-7.7); Basophil# 0.09 X10^3/uL; Basophil% 1.3 % (0-1); Eosinophil# 0.14 X10^3/uL; Eosinophils% 2.1 % (0-5); Hematocrit 42.3 % (40-54); Hemoglobin 13.3 g/dL (13.0-16.5); Lymphocyte # 1.53 X10^3/ul (0.83-4.51); Lymphocyte % 22.6 % (19-41); Mean Corp Hgb Conc 31.4 g/dL (32-36); Mean Corpuscular Hgb 28.5 pg (27.0-32.0); Mean Corpuscular Volume 90.8 fL (80-94); Mean Platelet Vol. 9.8 fl (6.2-12.0); Monocyte# 0.62 X10^3/uL; Monocyte% 9.2 % (0-10); NRBC Flagged by Analyzer 0 % (0-5); Neutrophil # 4.36 X10^3/uL (2.7-7.7); Neutrophil % 64.5 % (47-70); Platelet Count 266 K/mm3 (150-450); RBC Distribution Width CV 16.7 % (11.6-14.6); RBC Distribution Width SD 56.3 fl (35.1-43.9); Red Blood Count 4.66 M/mm3 (4.6-6.2); White Blood Count 6.8 K/mm3 (4.4-11.0)
[2020-11-25] MEDS: 0.9% Normal Saline 1,000 ML 150 ML IV (13:57)
[2020-11-25] MEDS: dilTIAZem 25 MG/5 ML Vial 20 MG IV BOLUS (13:57)
[2020-11-25 13:59] VITALS: BP 122/74; PULSE 112; RESP 12; O2SAT 98
--- NOTE | 2020-11-25 14:02 | RAD_ITS ---
STUDY: X-RAY CHEST REASON FOR EXAM: Male, 60 years old. dyspnea TECHNIQUE: Single AP portable view of the chest. COMPARISON: 05/29/2016 FINDINGS: The lungs are clear and expanded. There is no demonstrated pleural abnormality. There is moderate cardiac enlargement. Normal mediastinum and toña. Normal visualized pulmonary arteries. Normal visualized aortic arch and descending thoracic aorta. Normal visualized thoracic spine. Normal visualized ribs, clavicles, and shoulders. There is no demonstrated abnormality of the visualized soft tissue structures of the upper abdomen. RAD/Chest 1 View (Portable) IMPRESSION: No active disease. Electronically Signed: Hi Beck MD at 15:08 EDT Tel , Service support ,
[2020-11-25 14:10] LABS: Anion Gap 7 (5-15); BUN 11 mg/dL (7-18); BUN/Creat Ratio 9.7 RATIO (10-20); Chloride 103 mmol/L (98-107); Creatinine, Serum 1.13 mg/dL (0.70-1.30); EST Glomerular Filtration Rate 70 mL/min (>60); Est Glom Filt Rate - Afr Amer 84 mL/min (>60); Glucose 122 mg/dL (74-106); Potassium 4.2 mmol/L (3.5-5.1); Sodium Level 139 mmol/L (136-145); Troponin-I HS 6 pg/mL (3.0-78.0)
[2020-11-25 14:25] VITALS: PULSE 67; RESP 10; O2SAT 98
[2020-11-25 15:27] VITALS: BP 98/70; PULSE 71; RESP 13; O2SAT 99
== END 2020-11-25 15:32 | disposition home or self-care (01) ==
PROVIDERS: Emergency Provider Emergency Medicine; PCP Nurse Practitioner Family
DX: I48.91 Unspecified atrial fibrillation (principal); I48.92 Unspecified atrial flutter; F41.9 Anxiety disorder, unspecified; I25.10 Atherosclerotic heart disease of native coronary artery without angina pectoris; F31.9 Bipolar disorder, unspecified; I50.32 Chronic diastolic (congestive) heart failure; I11.0 Hypertensive heart disease with heart failure; K21.9 Gastro-esophageal reflux disease without esophagitis; Z79.02 Long term (current) use of antithrombotics/antiplatelets; Z79.899 Other long term (current) drug therapy; Z87.891 Personal history of nicotine dependence
CPT/HCPCS: 71045; 80048; 84484; 85025; 93005; 96361; 96374; 99285; J7030; A4216